=== PATIENT | female | born 1980 | race Two or more races ===

== ENCOUNTER 2019-01-03 14:19 | Emergency (ER) | payer OTHER ==
--- NOTE | 2019-01-03 14:30 | PDOC ---
Rapid Medical Evaluation Chief Complaint: Pain, Acute Time Seen by Provider: 01/03/19 14:28 Medical Evaluation: Allergies Allergy/AdvReac Type Severity Reaction Status Date / Time No Known Allergies Allergy Verified 12/31/17 17:43 01/03/19 14:28 I have performed a brief in-person evaluation of this patient. The patient presents with a chief complaint of: abd pain with no fevers, generalized- no other family ill, no N/V/D/C Pertinent physical exam findings: abd soft but tender I have ordered the following: UA/ UCG The patient will proceed to the ED for further evaluation. Discharge Disposition - Diagnosis Abdominal pain - Referrals - Patient Instructions - Post Discharge Activity
[2019-01-03 14:31] VITALS: BMI 27.0
[2019-01-03 15:30] LABS: PH,URINE 5.5 (5.0-8.0); URINE APPEARANCE CLEAR; URINE BILIRUBIN NEGATIVE (NEGATIVE); URINE COLOR YELLOW; URINE GLUCOSE (UA) NEGATIVE (NEGATIVE); URINE KETONE NEGATIVE (NEGATIVE); URINE LEUK ESTERASE NEGATIVE (NEGATIVE); URINE NITRITE NEGATIVE (NEGATIVE); URINE PROTEIN TRACE (NEGATIVE)
--- NOTE | 2019-01-03 16:10 | PDOC ---
History of Present Illness - General Chief Complaint: Pain, Acute Stated Complaint: ABD PAIN / VOMITING Time Seen by Provider: 01/03/19 14:28 History Source: Patient, Spouse (Marshallese-speaking ) Exam Limitations: No Limitations - History of Present Illness Initial Comments: 01/03/19 16:22 38F w/ pmh of depression, MVP, HTN, sickle cell presents with complaint of diffuse all-over abdominal pain w/a nausea and dizziness(room spinning) since last night. Has dry heaves. Denies emesis, anorexia. Last normal bowel movement was the morning prior to presentation. Last EGD was ~1.5ys prior with no notable results. Last painful sickle episode was in 2018. Does not have regular follow-up. Has irregular menses. LMP was ~12/07/18. Associated Symptoms: reports: nausea/vomiting. denies: chest pain, cough, diaphoresis, fever/chills, headaches, loss of appetite, shortness of breath, syncope Aspirin Received prior to arrival: No: no aspirin today Asa Contraindications(Core Measure): No: Allergy Past History - Travel Traveled outside of the country in the last 30 days: No Close contact w/someone who was outside of country & ill: No - Past Medical History Allergies/Adverse Reactions: Allergies Allergy/AdvReac Type Severity Reaction Status Date / Time No Known Allergies Allergy Verified 01/03/19 14:28 Home Medications: Ambulatory Orders Cetirizine HCl [Zyrtec Rapidly Dissolving Tab -] 10 mg PO DAILY #30 tab Fluticasone Propionate [Flonase Allergy Relief] 9.9 ml NS Q3H5XD #1 spray.susp 01/03/19 Meclizine HCl 25 mg PO Q6H PRN #28 tab.chew 01/03/19 Anemia: Yes (sickle cell disease) COPD: No - Surgical History Other Surgical History: 01/03/19 16:49 tubal ligation - Family Disease History Family Disease History: Other: Father (sickle cell) - Reproductive History LMP comment: 12/07/18 LMP Normal: No - Immunization History Immunization Up to Date: Yes - Suicide/Smoking/Psychosocial Hx Smoking History: Never smoked Have you smoked in the past 12 months: Yes Number of Cigarettes Smoked Daily: 5 Information on smoking cessation initiated: No 'Breaking Loose' booklet given: 08/14/18 Hx Alcohol Use: No Drug/Substance Use Hx: No Substance Use Type: None Hx Substance Use Treatment: No Review of Systems - Review of Systems Able to Perform ROS?: No Is the patient limited Marshallese proficient: Yes Constitutional: No: Chills, Fever, Loss of Appetite HEENTM: Yes: Double Vision. No: Blurred Vision Respiratory: No: Cough, Shortness of Breath, Wheezing Cardiac (ROS): No: Chest Pain, Palpitations ABD/GI: Yes: Nausea. No: Constipated, Diarrhea, Vomiting : No: Burning, Dysuria Integumentary: No: Dryness Neurological: Yes: Dizziness. No: Headache, Numbness Psychiatric: Yes: Depression *Physical Exam - Vital Signs Last Vital Signs Temp Pulse Resp BP Pulse Ox 98.5 F 65 16 139/90 100 01/03/19 14:28 01/03/19 14:28 01/03/19 14:28 01/03/19 14:28 01/03/19 14:28 - Physical Exam General Appearance: Yes: Mild Distress, Obese HEENT: positive: Pharynx Normal, Scleral Icterus (R), Scleral Icterus (L). negative: Normal Voice Neck: positive: Trachea midline. negative: Lymphadenopathy (R), Lymphadenopathy (L) Respiratory/Chest: positive: Lungs Clear, Normal Breath Sounds. negative: Respiratory Distress, Rales, Wheezing Cardiovascular: positive: Regular Rate, S1, S2 Gastrointestinal/Abdominal: positive: Soft, Tenderness (Tenderness of LUQ). negative: Guarding, Rebound Extremity: negative: Coldness, Swelling, Calf Tenderness Integumentary: positive: Dry, Warm Neurologic: positive: feature writer II-XII NML intact, Motor Strength 5/5, Other (normal Romberg's, norm pronator drift, norm [id number], norm heel-fay) ED Treatment Course - LABORATORY CBC & Chemistry Diagram: 01/03/19 17:49 01/03/19 17:49 - ADDITIONAL ORDERS Additional order review: Laboratory Results 01/03/19 01/03/19 14:51 14:51 Urine Color Yellow Urine Appearance Clear Urine pH 5.5 Ur Specific [place] 1.020 Urine Protein Trace Urine Glucose (UA) Negative Urine Ketones Negative Urine Blood Negative Urine Nitrite Negative Urine Bilirubin Negative Urine Urobilinogen 1.0 Ur Leukocyte Esterase Negative Urine HCG, Qual Negative Medical Decision Making - Medical Decision Making 01/03/19 17:01 - administered meclizine and zofran(SL) -- nausea improved - fu CBC, reticulocyte, CMP, lipase - fu CT head, CXR, EKG 01/03/19 18:22 - flonase for nasal congestion - will get CT A/P with PO and IV contrast 01/03/19 22:19 - positive Imogene Hallpike to Left - CT Head, CXR, EKG, CBC, CMP, UA -- neg - stable for discharge *DC/Admit/Observation/Transfer Diagnosis at time of Disposition: Nausea Abdominal pain Qualifiers: Abdominal location: generalized Qualified Code(s): R10.84 - Generalized abdominal pain - Discharge Dispostion Disposition: HOME Condition at time of disposition: Stable Decision to Admit order: No - Referrals Referrals: Tomasa Schreiber [Primary Care Provider] - Uli Cason MD [Staff Physician] - - Patient Instructions Printed Discharge Instructions: DI for Nausea -- Adult Additional Instructions: You were evaluated for generalized abdominal pain with nausea and dizziness. Shae Hallpike maneuver was positive of the Left side suggestive of otolith or vestibular disorders. Your symptoms improved after meclizine, zofran, IV fluids. Your CT head, CT abdodmen, CXR, EKG were negative for acute pathologies. Please take meclizine for your nausea as needed. Take zyrtec and flonase for nasal congestion. You can take acetaminophen for your abdominal pain. Please follow-up with your PCP for further evaluation of your abdominal pain. You were referred to ENT to evaluate for possible vestibular disorders. Please return to the ED if you experience: - severe, unremitting abdominal pain - severe, unremitting nausea and vomiting - Post Discharge Activity
[2019-01-03 16:14] LABS: EPI CELLS 7.9 /HPF (0-5/HPF); HYALINE CASTS 8 /lpf (0-8); URINE BACTERIA 42.3 /hpf (NEGATIVE); URINE RBC 2 /hpf (0-4); URINE WBC 1 /hpf (0-5)
[2019-01-03] MEDS ORDERED: ONDANSETRON *ODT* 4 MG TABLET SL ONE (16:37)
[2019-01-03] MEDS ORDERED: MECLIZINE HCL 25 MG TABLET (FP) PO ONE (16:37)
[2019-01-03] MEDS ORDERED: ONDANSETRON *ODT* 4 MG TABLET ONE (16:44)
[2019-01-03] MEDS ORDERED: MECLIZINE HCL 25 MG TABLET (FP) ONE (16:44)
[2019-01-03] MEDS ORDERED: SODIUM CHLORIDE 0.9% 1000 ML INFUS.BAG IV ONE (17:23)
[2019-01-03 18:02] LABS: HEMATOCRIT 30.9 % (32.4-45.2); HEMOGLOBIN 9.4 GM/dL (10.7-15.3); MCHC 30.5 g/dl (32.0-36.0); MEAN CELL VOLUME 65.3 fl (80-96); MEAN PLT VOLUME 9.9 fl (7.5-11.1); PLATELET COUNT 171 K/MM3 (134-434); RBC 4.74 M/mm3 (3.60-5.2); RDW 21.4 % (11.6-15.6); WHITE BLOOD COUNT 8.3 K/mm3 (4.0-10.0)
[2019-01-03 18:04] LABS: MCH 19.9 pg (25.7-33.7)
[2019-01-03 18:19] LABS: ALBUMIN 3.9 g/dl (3.4-5.0); ALK PHOS 102 U/L (45-117); ANION GAP 5 MMOL/L (8-16); BILIRUBIN,TOTAL 0.4 mg/dL (0.2-1); BLOOD UREA NITROGEN 8.2 mg/dL (7-18); CHLORIDE 107 mmol/L (98-107); CO2 26 mmol/L (21-32); CREATININE 0.6 mg/dL (0.55-1.3); GLUCOSE,RANDOM 111 mg/dL (74-106); LIPASE 65 U/L (73-393); POTASSIUM 4.2 mmol/L (3.5-5.1); SGOT/AST 10 U/L (15-37); SGPT/ALT 14 U/L (13-61); SODIUM 138 mmol/L (136-145); TOT PROT 7.8 g/dl (6.4-8.2)
[2019-01-03] MEDS ORDERED: FLUTICASONE PROP 0.05% 16 GM NASAL SPRAY NS ONE (18:20)
--- NOTE | 2019-01-03 19:31 | PDOC ---
Documentation entered by Marleni Cash SCRIBE, acting as scribe for Judi Pak MD. Judi Pak MD: This documentation has been prepared by the Shailesh neville Xhesika, SCRIBE, under my direction and personally reviewed by me in its entirety. I confirm that the documentation accurately reflects all work, treatment, procedures, and medical decision making performed by me. Attending Attestation - Resident Resident Name: Allen Hickey - ED Attending Attestation I have performed the following: I have examined & evaluated the patient, The case was reviewed & discussed with the resident, I agree w/resident's findings & plan, Exceptions are as noted - HPI HPI: 01/03/19 17:39 38 year old female with a significant PMH of depression, MVP, HTN, sickle cell (last episode in 2018) who presents to the emergency department for dizziness. Patient describes the dizziness as room spinning associated with diffuse abdominal pain and nausea since last night. Patient notes her last normal BM was yesterday morning. Patient notes her LMP was 12/07/18. 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 does not take any prophylactic medication for her sickle cell. vertigo is worse with turning. and rolling has had in the past. denies seasonal allergies but has had a frontal headahce. and congestion recently. has been told to use flonase in the past. no ear ringing. no cp no sob. no h/o acute chest. normal sickle pain crisis c/o joint pain and back pain not abd pain usually. The patient denies chest pain, shortness of breath, headache. Denies fever, chills, cough, vomiting, diarrhea and constipation. Denies dysuria, frequency, urgency and hematuria. Allergies: NKDA PCP: Tomasa Cuellar 01/03/19 19:17 - Physicial Exam PE: 01/03/19 19:19 awake alert lungs ctab. heart rrr no mrg abd soft luq epigastric ttp. rlq ttp. nd. ext wwp nt nd ext wwp . skin warm and dry no edema. nuero alert oriented x 3. finger to nose intact. heel to fay normal. neg romberg. alt hand movement normal. speech clear gait normal. 01/03/19 19:30 - Medical Decision Making 01/03/19 19:25 38 yo F with /ho sickle cell here with vertigo, abd pain nausea. ttp on abd exam nuerological/ cerebellar exam normal. positive marleny hallpike to right. likley peripheral. however due to risk factors cva sickle cell will ct head. fluids meclizine. h/o hysterectomy. will obtain ct a/p r/o obstruction. ua
[2019-01-03 21:11] LABS: RETICULOCYTES 1.96 % (0.5-1.5)
[2019-01-03 21:26] LABS: ANISOCYTOSIS 2+; MACROCYTOSIS 1+
[2019-01-03 21:27] LABS: PLATELET ESTIMATE ADEQUATE
[2019-01-03 22:46] VITALS: BP 111/63; PULSE 81; TEMP 98.7
--- NOTE | 2019-01-05 11:40 | EKG ---
Test Reason : Blood Pressure : / mmHG Vent. Rate : 060 BPM Atrial Rate : 060 BPM P-R Int : 168 ms QRS Dur : 070 ms QT Int : 468 ms P-R-T Axes : 046 036 036 degrees QTc Int : 468 ms NORMAL SINUS RHYTHM T WAVE ABNORMALITY, CONSIDER ANTERIOR ISCHEMIA PROLONGED QT ABNORMAL ECG WHEN COMPARED WITH ECG OF 31-DEC-2017 17:52, T WAVE INVERSION NOW EVIDENT IN ANTERIOR LEADS Confirmed by DAVID GALICIA, JOSIAH ([id number]) on 01/05/2019 11:39:34 AM Referred By: Confirmed By:JOSIAH HERNANDEZ MD
== END 2019-01-03 23:12 | disposition home or self-care (01) ==
LOC: JER 14:19
PROC: 3E0337Z Introduction of Electrolytic and Water Balance Substance into Peripheral Vein, Percutaneous Approach (ICD-10-PCS; principal; 2019-01-03)
DX: R10.84 Generalized abdominal pain (principal); R11.0 Nausea
CPT/HCPCS: 36415; 70450-TC; 71046-TC-FY; 74177-TC; 80053; 81003; 83690; 84484; 84703; 85025; 85044; 93005; 93010; 96360; 99283-25; J7030; Q0162; Q9967

== ENCOUNTER 2019-03-24 18:21 | Emergency (ER) | payer OTHER ==
[2019-03-24 18:38] VITALS: BP 104/66; TEMP 98.6; BMI 29.9
[2019-03-24 18:46] VITALS: PULSE 86
[2019-03-24] MEDS ORDERED: ACETAMINOPHEN 1000 MG/100 ML VIAL (NON FORMULARY) IVPB ONE (19:16)
--- NOTE | 2019-03-24 19:27 | PDOC ---
Attending Attestation - Resident Resident Name: Tex Lyn - ED Attending Attestation I have performed the following: I have examined & evaluated the patient, The case was reviewed & discussed with the resident, I agree w/resident's findings & plan - HPI HPI: 03/24/19 23:42 see resident hpi 03/24/19 23:42 - Physicial Exam PE: 03/24/19 23:42 see resident exam - Medical Decision Making 03/25/19 01:45 38-year-old female with multiple complaints including intermittent chest pain, mild headache and suprapubic pressure/dysuria CT scan of the brain, pelvic ultrasound and CT scan of the abdomen were performed which reveal possible bladder wall thickening and right ovarian cyst with no other significant acute findings Pelvic exam within normal limits Patient feeling better, asking for food Urine culture pending, will treat for clinical UTI with outpatient follow-up recommended
--- NOTE | 2019-03-24 19:49 | PDOC ---
History of Present Illness - General Chief Complaint: Pain, Acute Stated Complaint: ABDOMINAL PAIN Time Seen by Provider: 03/24/19 18:37 - History of Present Illness Initial Comments: 03/24/19 19:49 Pt is a 38 y/o F with a PMH of Depression, Paranoia, HTN, sickle cell trait who presents to [facility] due to Chest pain, headache, and lower abdominal pain. Pt endorses that she began to experience her symptoms this morning. Pt states chest pain is reproducible and radiates to her right arm. Pain is exacerbated when she inspires. Pt has not used any medications to relieve her symptoms. Pt states her abdominal pain has been constant and radiates to lower legs. Does endorse dysuria. Also states she is currently menstruating. Headache is described as achy and constant. Does endorse a history of headaches. Past History - Past Medical History Allergies/Adverse Reactions: Allergies Allergy/AdvReac Type Severity Reaction Status Date / Time No Known Allergies Allergy Verified 01/03/19 14:28 Home Medications: Ambulatory Orders Aripiprazole [Abilify] 10 mg PO DAILY 03/24/19 Fluoxetine HCl [Prozac -] 20 mg PO DAILY 03/24/19 Meclizine HCl 25 mg PO DAILY 03/24/19 traZODone HCL [Trazodone HCl] 50 mg PO HS 03/24/19 Cephalexin Monohydrate [Keflex -] 500 mg PO BID 7 Days #14 capsule 03/25/19 Anemia: Yes (sickle cell disease) COPD: No Psychiatric Problems: Yes (ANXIETY) Other medical history: VERTIGO - Surgical History GI Surgery: No - Immunization History Immunization Up to Date: Yes - Psycho Social/Smoking Cessation Hx Smoking History: Unknown if ever smoked Have you smoked in the past 12 months: No Number of Cigarettes Smoked Daily: 5 Information on smoking cessation initiated: No 'Breaking Loose' booklet given: 01/01/18 Hx Alcohol Use: No Drug/Substance Use Hx: No Substance Use Type: None Hx Substance Use Treatment: No Review of Systems - Review of Systems Constitutional: Yes: Chills Respiratory: No: Cough, Shortness of Breath Cardiac (ROS): Yes: Chest Pain ABD/GI: Yes: Abdominal cramping. No: Abdominal Distended, Constipated, Diarrhea , Rectal Bleeding, Vomiting : Yes: Dysuria Neurological: Yes: Headache *Physical Exam - Vital Signs Last Vital Signs Temp Pulse Resp BP Pulse Ox 98.6 F 86 16 104/66 98 03/24/19 18:36 03/24/19 18:44 03/24/19 18:36 03/24/19 18:36 03/24/19 18:44 - Physical Exam General Appearance: Yes: Nourished, Appropriately Dressed HEENT: positive: EOMI. negative: Pale Conjunctivae, Photophobia, Scleral Icterus (R), Scleral Icterus (L) Neck: positive: Supple Respiratory/Chest: positive: Lungs Clear, Normal Breath Sounds. negative: Respiratory Distress Female Pelvic Exam: positive: normal external exam (Exam Chaperoned by Lisa RAHMAN ), vaginal bleeding. negative: discharge, lesions Gastrointestinal/Abdominal: positive: Normal Bowel Sounds, Tender. negative: Distended, Guarding, Rebound Musculoskeletal: positive: Normal Inspection Extremity: positive: Normal Range of Motion. negative: Pedal Edema Integumentary: positive: Normal Color. negative: Erythema Neurologic: positive: articulation officer II-XII NML intact, Fully Oriented, Alert Heart Score/ECG Review - ECG Impressions Comment:: 03/24/19 19:53 EKG nl sinus rytham, nl intervals, no ST/T wave inversions. Venr rate 71 QTc 456 ED Treatment Course - LABORATORY CBC & Chemistry Diagram: 03/24/19 19:42 03/24/19 19:42 - Medications Given in the ED: ED Medications Discontinued Medications Generic Name Dose Route Start Last Admin Trade Name Luisq PRN Reason Stop Dose Admin Acetaminophen 1,000 mg 03/24/19 19:16 03/24/19 19:46 Ofirmev Injection - IVPB 03/24/19 19:17 1,000 mg ONCE ONE Administration Medical Decision Making - Medical Decision Making 03/24/19 19:49 CBC w/ diff, CMP, UC UA, Cardiac profile, IV Tylenol. 03/24/19 20:16 Will add on D-Dimer as PE on differential. Will perform Pelvic Exam ands Straight cath as well in light of abdominal pain and dysuria. Head CT w/o Contrast in light of sickle cell history. 03/24/19 21:07 Pelvic exam performed. Chaperoned by Lisa RAHMAN. No adnexal tenderness. Blood in vault however patient endorses having period currently. Pt straight cathed- endorses just voided. Minimal urine received. Will send for Urine Culture. Pt's serum preg negative, will send now for Head CT. 03/24/19 21:11 d-dimer negative. Will defer CTA Chest as Pulmonary Embolism very unlikely. 03/24/19 22:56 Pt straight cathed again as very little urine collected on 1st cath. Chaperoned by Emelia Harding RN. 03/24/19 23:18 Pt still endorsing lower abdominal pain. Will order CTAP w/ Contrast as well as TVUS to assess ovaries as ovarian torsion in differential . 03/24/19 23:31 Pt currently in Ultrasound 03/25/19 00:19 S[address] out Care to Dr Camargo Discharge - Discharge Information Problems reviewed: Yes Clinical Impression/Diagnosis: Cystitis Condition: Stable Disposition: HOME - Additional Discharge Information Prescriptions: Cephalexin Monohydrate [Keflex -] 500 mg PO BID 7 Days #14 capsule - Follow up/Referral Referrals: Tomasa Schreiber [Primary Care Provider] - - Patient Discharge Instructions Patient Printed Discharge Instructions: DI for Acute Cystitis Additional Instructions: You were seen in the ER for lower abdominal pain Your workup showed bladder infection You were given antibiotics You were prescribed antibiotics that should be taken as prescribed Please follow up with your Family Doctor within 1 week. Return to the ER if you have worsening symptoms, blood in the urine or fever. - Post Discharge Activity
[2019-03-24 20:08] LABS: BASO % 0.8 % (0-2.0); EOS % 2.7 % (0-4.5); HEMATOCRIT 32.2 % (32.4-45.2); HEMOGLOBIN 10.1 GM/dL (10.7-15.3); LYMPH % 32.2 % (8-40); MCH 22.3 pg (25.7-33.7); MCHC 31.4 g/dl (32.0-36.0); MEAN CELL VOLUME 71.2 fl (80-96); MEAN PLT VOLUME 11.1 fl (7.5-11.1); MONO % 5.5 % (3.8-10.2); NEUT % 58.8 % (42.8-82.8); RBC 4.53 M/mm3 (3.60-5.2); RDW 25.2 % (11.6-15.6); WHITE BLOOD COUNT 6.4 K/mm3 (4.0-10.0)
[2019-03-24] MEDS ORDERED: ACETAMINOPHEN INJECTION 100 ML IVPB ONE (20:13)
[2019-03-24 20:15] LABS: INR 1.11 (0.83-1.09); PROTHROMBIN TIME (PATIENT) 13.1 SEC (9.7-13.0)
[2019-03-24 20:23] LABS: ALBUMIN 3.4 g/dl (3.4-5.0); BILIRUBIN,TOTAL 0.3 mg/dL (0.2-1); CALCIUM 8.4 mg/dL (8.5-10.1); CREATININE 0.6 mg/dL (0.55-1.3); POTASSIUM 4.1 mmol/L (3.5-5.1); TOT PROT 6.6 g/dl (6.4-8.2)
[2019-03-24] MEDS ORDERED: SODIUM CHLORIDE 0.9% 1000 ML INFUS.BAG IV ONE (20:30)
[2019-03-24 21:55] LABS: PLATELET COUNT 141 K/MM3 (134-434)
[2019-03-24 21:56] LABS: ANISOCYTOSIS 3+; HOWELL-JOLLY BODIES 1+; PLATELET ESTIMATE ADEQUATE
[2019-03-24] MEDS ORDERED: SODIUM CHLORIDE 1,000 ML IV ONE (22:13)
[2019-03-24 23:13] LABS: EPI CELLS 3.4 /HPF (0-5/HPF); HYALINE CASTS 3 /lpf (0-8); PH,URINE 5.5 (5.0-8.0); URINE APPEARANCE CLEAR; URINE BACTERIA 1.2 /hpf (NEGATIVE); URINE BILIRUBIN NEGATIVE (NEGATIVE); URINE COLOR YELLOW; URINE GLUCOSE (UA) NEGATIVE (NEGATIVE); URINE KETONE NEGATIVE (NEGATIVE); URINE LEUK ESTERASE NEGATIVE (NEGATIVE); URINE NITRITE NEGATIVE (NEGATIVE); URINE PROTEIN NEGATIVE (NEGATIVE); URINE RBC 1 /hpf (0-4); URINE WBC 1 /hpf (0-5)
--- NOTE | 2019-03-25 01:28 | PDOC ---
*Physical Exam - Vital Signs Last Vital Signs Temp Pulse Resp BP Pulse Ox 98.6 F 86 16 104/66 98 03/24/19 18:36 03/24/19 18:44 03/24/19 18:36 03/24/19 18:36 03/24/19 18:44 - Physical Exam Comments: 03/25/19 01:25 Patient signed out by resident Dr. Lyn In short patient with PMH of Depression, Paranoia, HTN, sickle cell trait who presents to [facility] due to Chest pain, headache, and lower abdominal pain. Pending Head CT, TVUS, CTAP ED Course: CTAP: cystitis Head CT: unremarkable TVUS: unremarkable Patient dosed abx D/C with abx ED Treatment Course - LABORATORY CBC & Chemistry Diagram: 03/24/19 19:42 03/24/19 19:42 - ADDITIONAL ORDERS Additional order review: Laboratory Results 03/24/19 03/24/19 03/24/19 22:52 19:45 19:42 PT with INR INR D-Dimer 342 Sodium Potassium Chloride Carbon Dioxide Anion Gap BUN Creatinine Est GFR (CKD-EPI)AfAm Est GFR (CKD-EPI)NonAf Random Glucose Calcium Total Bilirubin AST ALT Alkaline Phosphatase Creatine Kinase Troponin I Total Protein Albumin Serum , Qual Negative Urine Color Yellow Urine Appearance Clear Urine pH 5.5 Ur Specific [place] 1.028 Urine Protein Negative Urine Glucose (UA) Negative Urine Ketones Negative Urine Blood 1+ H Urine Nitrite Negative Urine Bilirubin Negative Urine Urobilinogen 1.0 Ur Leukocyte Esterase Negative Urine WBC (Auto) 1 Urine RBC (Auto) 1 Urine Casts (Auto) 3 U Epithel Cells (Auto) 3.4 Urine Bacteria (Auto) 1.2 03/24/19 03/24/19 03/24/19 19:42 19:42 19:42 PT with INR 13.10 H INR 1.11 H D-Dimer Sodium 140 Potassium 4.1 Chloride 109 H Carbon Dioxide 28 Anion Gap 4 L BUN 13.0 Creatinine 0.6 Est GFR (CKD-EPI)AfAm 133.07 Est GFR (CKD-EPI)NonAf 114.82 Random Glucose 103 Calcium 8.4 L Total Bilirubin 0.3 AST 13 L ALT 15 Alkaline Phosphatase 96 Creatine Kinase 110 Troponin I < 0.02 Total Protein 6.6 Albumin 3.4 Serum , Qual Urine Color Urine Appearance Urine pH Ur Specific [place] Urine Protein Urine Glucose (UA) Urine Ketones Urine Blood Urine Nitrite Urine Bilirubin Urine Urobilinogen Ur Leukocyte Esterase Urine WBC (Auto) Urine RBC (Auto) Urine Casts (Auto) U Epithel Cells (Auto) Urine Bacteria (Auto) 03/24/19 19:42 RBC 4.53 MCV 71.2 L MCHC 31.4 L RDW 25.2 H MPV 11.1 D Neutrophils % 58.8 D Lymphocytes % 32.2 D Monocytes % 5.5 Eosinophils % 2.7 Basophils % 0.8 - Medications Given in the ED: ED Medications Discontinued Medications Generic Name Dose Route Start Last Admin Trade Name Luisq PRN Reason Stop Dose Admin Acetaminophen 1,000 mg 03/24/19 19:16 03/24/19 19:46 Ofirmev Injection - IVPB 03/24/19 19:17 1,000 mg ONCE ONE Administration Sodium Chloride 1,000 mls @ 1,000 mls/hr 03/24/19 22:13 03/24/19 22:27 Normal Saline - IV 03/24/19 23:12 1,000 mls/hr ONCE ONE Administration Sodium Chloride 1,000 ml 03/24/19 20:30 03/24/19 21:13 Normal Saline - IV 03/24/19 20:31 1,000 ml NOW ONE Administration Discharge - Discharge Information Problems reviewed: Yes Clinical Impression/Diagnosis: Cystitis Condition: Stable Disposition: HOME - Admission No - Additional Discharge Information Prescriptions: Cephalexin Monohydrate [Keflex -] 500 mg PO BID 7 Days #14 capsule - Follow up/Referral Referrals: Tomasa Schreiber [Primary Care Provider] - - Patient Discharge Instructions Patient Printed Discharge Instructions: DI for Acute Cystitis Additional Instructions: You were seen in the ER for lower abdominal pain Your workup showed bladder infection You were given antibiotics You were prescribed antibiotics that should be taken as prescribed Please follow up with your Family Doctor within 1 week. Return to the ER if you have worsening symptoms, blood in the urine or fever. - Post Discharge Activity
[2019-03-25] MEDS ORDERED: CEPHALEXIN MONOHYDRATE 500 MG CAPSULE (UD) PO ONE (01:29)
[2019-03-25] MEDS ORDERED: CEPHALEXIN MONOHYDRATE 500 MG CAPSULE (UD) ONE (01:55)
--- NOTE | 2019-03-25 09:18 | EKG ---
Test Reason : Blood Pressure : / mmHG Vent. Rate : 071 BPM Atrial Rate : 071 BPM P-R Int : 162 ms QRS Dur : 070 ms QT Int : 420 ms P-R-T Axes : 036 039 046 degrees QTc Int : 456 ms NORMAL SINUS RHYTHM NORMAL ECG WHEN COMPARED WITH ECG OF 03-JAN-2019 17:49, NO SIGNIFICANT CHANGE WAS FOUND Confirmed by MD Cox Edward ([id number]) on 03/25/2019 9:17:45 AM Referred By: Confirmed By:Pan Cox MD
== END 2019-03-25 02:02 | disposition home or self-care (01) ==
LOC: JER 18:21
PROC: 3E0337Z Introduction of Electrolytic and Water Balance Substance into Peripheral Vein, Percutaneous Approach (ICD-10-PCS; principal; 2019-03-24)
PROC: 3E033NZ Introduction of Analgesics, Hypnotics, Sedatives into Peripheral Vein, Percutaneous Approach (ICD-10-PCS; 2019-03-24)
DX: N30.00 Acute cystitis without hematuria (principal); I10 Essential (primary) hypertension; F32.9 Major depressive disorder, single episode, unspecified; F22 Delusional disorders; D57.1 Sickle-cell disease without crisis
CPT/HCPCS: 36415; 70450-TC; 74177-TC; 76830-TC; 76856-TC; 80053; 81003; 82550; 84484; 84703; 85025; 85379; 85610; 87086; 93005; 93010; 96361; 96374; 99285-25; J0131; J7030

== ENCOUNTER 2020-02-07 23:08 | Inpatient (IN) | payer OTHER ==
--- OUTSIDE RECORDS SUMMARY | 2020-02-07 23:55 | XMS ---
:1980 Demographics Address [address] [place] [address] Phone Email Address Preferred Language spa Marital Status or Adventist Affiliation [place] Race [facility] Ethnic Group or Author Organization [facility] Support Name Relationship Address Phone UNEMPLOYD Unavailable Unavailable Unavailable BELEN HUTCHISON [address] [place] [address] UE Unavailable Unavailable Unavailable LUKE TSE PARTNER [address] [phone] [place] [address] LUKE TSE Unavailable [address] [place] [address] Care Team Providers Name Role Phone [facility], AW9 Unavailable Unavailable DELLA VÁSQUEZ Unavailable Unavailable VINCE TOURE Unavailable Unavailable GORDO ROWAN Unavailable Unavailable Kaitlin Duke MD Unavailable Unavailable Sharifa Shay Unavailable Unavailabl e EMERGENCY SERVICE, X Unavailable Unavailable Mikala, Eliseo Unavailable Unavailable Mikala, Eliseo Unavailable Unavailable Mikala, Eliseo Unavailable Unavailable Mikala, Eliseo Unavailable Unavailable Mikala, Eliseo Unavailable Unavailable SIVA RILEY, [id number] Unavailable Unavailabl e Leny Caldera Unavailable Unavailable EVANS PIERSON Unavailable Unavailable Adrián Serrano MD Unavailable Unavailable Re-disclosure Warning The records that you are about to access may contain information from federally- assisted alcohol or drug abuse programs. If such information is present, then the following federally mandated warning applies: This information has been disclosed to you from records protected by federal confidentiality rules (42 CFR part 2). The federal rules prohibit you from making any further disclosure of this information unless further disclosure is expressly permitted by the written consent of the person to whom it pertains or as otherwise permitted by 42 CFR part 2. A general authorization for the release of medical or other information is NOT sufficient for this purpose. The Federal rules restrict any use of the information to criminally investigate or prosecute any alcohol or drug abuse patient.The records that you are about to access may contain highly sensitive health information, the redisclosure of which is protected by Article 27-F of the [facility] Public Health law. If you continue you may haveaccess to information: Regarding HIV / AIDS; Provided by facilities licensed or operated by the [facility] Office of Mental Health; or Provided by the [facility] Office for People With Developmental Disabilities. If such information is present, then the following [facility] mandated warning applies: This information has been disclosed to you from confidential records which are protected by state law. State law prohibits you from making any further disclosure of this information without the specific written consent of the person to whom it pertains, or as otherwise permitted by law. Any unauthorized further disclosure in violation of state law may result in a fine or intermediate sentence or both. A general authorization for the release of medical or other information is NOT sufficient authorization for further disclosure. Advance Directives Directive Description Beverage Sales Consultant Admission Nurse Coordinator Status Observation Data S ource(s) Description Advance No completed [facility] Advance No completed [facility] Allergies and Adverse Reactions Type Description Substance Reaction Status Data Source(s ) Drug allergy No Known Allergies No Known NO KNOWN [place] Allergies [facility] Food allergy No Known Food No Known Food [place] Allergies Allergies [facility] on Drug allergy No Known Allergies No Known [place] Allergies [facility] on Drug allergy No Known Drug No Known Drug [place] Allergies Allergies [facility] on Encounters Encounter Providers Location Date Indications Data Source(s ) Outpatient Attender: FAHAD [facility]: [facility] Health Car e DELLA VÁSQUEZ [facility] Outpatient Attender: MHAW9 12/20/2019 G[facility] ([facility] 11:21:10 AM Care Lakeshia puente EDT Patient admitted. Outpatient Attender: FAHAD 12/19/2019 06:00:00 AM [facility] MARCO ANTONIOdmitter: MARKO VÁSQUEZ [facility] DELLA Outpatient Attender: ANUM 10/30/2019 06:00:00 AM [facility] GORDO RiveroAdmitter: EDT Health C are GORDO Benavidez Outpatient Attender: ANUM, 09/29/2019 06:00:00 AM [facility] GORDO RiveroAdmitter: [facility] Health C are GORDO Benavidez Outpatient Attender: ANUM, 09/01/2019 06:00:00 AM [facility] GORDO RiveroAdmitter: [facility] Health C are GORDO Benavidez Outpatient Attender: ANUM, 08/08/2019 03:23:00 PM [facility] GORDO RiveroAdmitter: [facility] Health C are GORDO Benavidez Outpatient Attender: MHAW9 [facility] 07/08/2019 11:49:28 AM I ([facility]) Patient admitted. U Attender: Sharifa Hernandez4 06/17/2019 04:00:00 PM CARELOGIC ([facility] - 06/17/2019 Services of 04:45:00 PM [facility]) Patient admitted. Outpatient Attender: 06/02/2019 [facility] GORDO Booth 06:00:00 AM EST [facility] Care B.Admitter: GORDO Benavidez Emergency Attender: Leny 05/21/2019 TROUBLE BREATHIN Ann MCQUEEN 09:08:00 PM EST - AUTO Hospita l 05/21/2019 10:09:00 PM EST TROUBLE BREATHING AUTO Patient discharged. Emergency Attender: MONSERRAT 04/02/2019 LOW PEVIC [facility] VINCEAttender: 02:04:00 PM EST [facility] EMERGENCY SERVICE, Corpor ation XAdmitter: VINCE TOURE LOW PEVIC PAIN Outpatient Attender: ANUM 04/02/2019 06:00:00 AM [facility] GORDO RiveroAdmitter: EST Health C are GORDO Benavidez Outpatient Attender: ANUM, 03/26/2019 06:00:00 AM [facility] GORDO RiveroAdmitter: EST Health C are GORDO Benavidez Outpatient Attender: ANUM 03/21/2019 06:00:00 AM [facility] GORDO RiveroAdmitter: EDT [facility] are GORDO Benavidez Outpatient Attender: MHAW9 [facility] 03/18/2019 02:05:19 PM I ([facility] EDT [facility]) Patient admitted. Outpatient Attender: 03/13/2019 [facility] GORDO Booth 06:00:00 AM EDT a [facility] Care B.Admitter: GORDO Benavidez Emergency Attender: Adrián 02/27/2019 VERTIGO [place] [facility] Maggie GALICIA 06:25:00 PM EDT - [facility]PRESS Hospit al 02/27/2019 09:10:00 PM EDT VERTIGO EMPRESS Patient discharged. Outpatient Attender: ANUM 02/13/2019 [facility] GORDO RiveroAttender: 06:00:00 AM EDT a [facility] Care FAHAD Suzette MARCO ANTONIOdmitter: DELLA VÁSQUEZ Emergency Attender: Kaitlin 02/10/2019 CHEST Juanjo Duke MD 01:55:00 AM EDT - PAIN,DIFF Hospita l 02/10/2019 BREATH 02:36:00 AM EDT WALK CHEST PAIN,DIFF BREATH WALK Patient discharged. Emergency Attender: DANGELO 01/29/2019 05:49:00 [facility] PAIN Outpatient Attender: ANUM 01/29/2019 06:00:00 AM [facility] GORDO RiveroAdmitter: [facility] are GORDO ROWAN Corpo ration Outpatient Attender: [id number] 01/10/2019 06:00:00 AM [facility].Admitter: [id number] [facility] SIVA RILEY Outpatient Attender: ANUM 12/18/2018 06:00:00 AM [facility] GORDO RiveroAdmitter: [facility] are GORDO ROWAN Corpo ration Outpatient Attender: ANUM 12/06/2018 06:00:00 AM [facility] GORDO RiveroAdmitter: [facility] GORDO ROWAN Corpo ration Outpatient Attender: Eliseo 11/06/2018 06:00:00 [facility] Ca re GORDO ROWANAdmitter: Eliseo Tavarez Attender: Sharifa Bean 02/01/2018 12:00:00 PM CARELOGIC (Family Shay EDT - 04/25/2019 Services of 03:36:00 PM EST [facility] er) Patient discharged. Immunizations Vaccine Date Status Description Data Source(s) New in 2011. IIV4 05/31/2015 completed influenza, injectable, [place] 03:57:00 PM EST quadrivalent, preserv Hos pital free New in 2011. IIV4 05/31/2015 completed influenza, injectable, [place] 03:57:00 PM EST quadrivalent, preserv Hos pital free New in 2011. IIV4 05/31/2015 completed influenza, injectable, [place] 03:57:00 PM EST quadrivalent, preserv Hos pital free Medications Medication Brand Start Product Dose Route Administrative Pharmacy [facility] Indications Reaction Description Data Name Date Form Instructions Instructions Source(s) Doxycycline Doxycy UNK active Doxycy dukes [place] 100mg (P dukes 2019 mg (Peds) Oral r C ounty 100mg 09:35: 100 mg PO Health (P 15 PM Care EST Corporatio n Medication administered onsite Rocephin Rocephin 04/02/2019 250 UNK active Js ephin [place] (Ceftriaxon (Ceftriaxon 09:35:13 PM mg (Ceftriaxone) [facility] EST Inj 250 mgIM [place] [facility] Care [facility] Medication administered onsite Doxycycline 04/02/2019 999 MG UNK completed Doxycycline [place] Hyclate 100 09:26:04 PM Hyclat e 100 County MG Ora EST MG Oral Health Car e Capsule TAKE Corpora tion 1 CAPSULE TWICE DAILY. Dispense: 28 Supervising physician: Vince Toure MD Tylenol Tylenol 04/02/2019 1000 UNK active Tylen ol [place] Infusion (AD Infusion 02:34:14 PM mg I nfusion County (AD EST (ADULT) or Health Ca re GT 50 kg Corporation 1000 mg IVPB Medication administered onsite Gastroview Gastroview 04/02/2019 1000 UNK active Gastroview [place] PO Contra PO Contra 02:34:14 PM mL PO Contrast [facility] (Adult) Health Care 1000 mL PO Corporati on Medication administered onsite 0.9% 0.9% 04/02/2019 1000 mL UNK active 0.9% NaC l [place] NaCl IV NaCl IV 02:34:14 PM IV 1000 mL; [facility] IV rate: Care Bolus over Corporati on 30 minutes Medication administered onsite Ondansetron 4 Ondansetron 05/18/2017 TABLET 4 mg ORAL completed White MG Hcl 05:45:00 PM [place] Disintegrating EST Hospi shawna Oral Tablet Ondansetron Hcl Ondansetron 4 Ondansetron 05/18/2017 TABLET 4 mg ORAL active [place] MG Hcl 05:45:00 PM [place] Disintegrating EST Hospi shawna Oral Tablet Ondansetron Hcl Ondansetron 4 dansetron 05/18/2017 TABLET 4 mg ORAL completed [place] MG Hcl 05:45:00 PM [place] Disintegrating EST Hospi shawna Oral Tablet Ondansetron Hcl Acetaminophen Oxycodone/Ac 04/27/2017 TABLET 1 ORAL active [place] 325 MG / etaminophen 09:06:00 PM [facility] Hydrochloride 5 MG Oral Tablet [Percocet] Oxycodone/Aceta minophen Acetaminophen Oxycodone/Ac 04/27/2017 TABLET 1 ORAL completed [place] 325 MG / etaminophen 09:06:00 PM [facility] Hydrochloride 5 MG Oral Tablet [Percocet] Oxycodone/Aceta minophen Acetaminophen Oxycodone/Ac 04/27/2017 TABLET 1 ORAL completed [place] 325 MG / etaminophen 09:06:00 PM [facility] Oxycodone [facility] Hydrochloride 5 MG Oral Tablet [Percocet] Oxycodone/Aceta minophen Cephalexin 500 Cephalexin 10/07/2016 CAPSULE 1000 ORAL completed White MG Oral Capsule Monohydrate 06:51:00 AM mg [place] Cephalexin [facility] Monohydrate Cephalexin 500 Cephalexin 10/07/2016 CAPSULE 1000 ORAL completed White MG Oral Capsule Monohydrate 06:51:00 AM mg [place] Cephalexin [facility] Monohydrate Cephalexin 500 Cephalexin 10/07/2016 CAPSULE 1000 ORAL completed White MG Oral Capsule Monohydrate 06:51:00 AM mg [place] Cephalexin EDT [facility] Monohydrate Percocet 03/05/2012 999 UNK completed [place] 5/325mg-12 04:31:57 PM MG [facility] et Corporatio 5m n g (O xy co do ne 5m g/ Ac et am in op he n 32 5m g) ; Tw el ve (1 2) ; Ta ke on e ev er y fo ur to si x ho ur s as ne ed ed fo r pa in ; ma x 6 ta bs /d ay ; CA UT IO N: Ca us es se da ti on Augmentin Oral 03/05/2012 999 UNK completed A [place] 04:31:57 PM [facility] nt Care in Corporatio Or n al 8 75 m g( s) 1 ta b( s) BI D - Du ra ti on : X7 da y( s) - Di sp en se : q ua nt it y hayes ff ic ie nt Augmentin Oral 11/18/2011 999 UNK completed [place] 01:23:36 AM MG Au [facility] EDT Health en Care ti Corporatio n n Or al 8 75 m g( s) BI D - Du ra ti on : X5 da y( s) - Di sp en se : q ua nt it y hayes ff ic ie nt Percocet 11/18/2011 999 UNK completed [place] 5/325mg-12 01:23:36 AM MG [facility] et Corporatio 5m n g (O xy co do ne 5m g/ Ac et am in op he n 32 5m g) ; Tw el ve (1 2) ; Ta ke on e ev er y fo ur to si x ho ur s as ne ed ed fo r pa in ; ma x 6 ta bs /d ay ; CA UT IO N: Ca us es se da ti on quetiapine 25 Quetiapine TABLET 25 mg ORAL completed [place] MG Oral Tablet Fumarate [place] [Seroquel] [facility] Quetiapine Fumarate quetiapine 25 Seroquel 999 oral discontinued Se [place] MG Oral Tablet MG ro r Cou nty [Seroquel] [facility] el Care Corporatio n aripiprazole 2 Abilify 999 oral completed Ab [place] MG Oral Tablet MG il r Cou nty [Abilify] if Health y Care Corporatio n Melatonin 0.2 melatonin 999 oral completed m e [place] MG Oral Tablet MG la r Cou nty melatonin to Health ni Care n Corporatio n Sertraline 25 sertraline 999 oral discontinued se [place] MG Oral Tablet MG rt r Cou nty [Zoloft] Health sertraline li Care ne Corporatio n Sertraline 50 Sertraline TABLET 1 ORAL completed [place] MG Oral Tablet Hcl {[facility] Pla ns [Zoloft] [facility]} [facility] Sertraline Hcl Ranitidine Hcl TABLET 150 ORAL completed [place] mg [facility] Sertraline 50 Sertraline TABLET 1 ORAL active [place] MG Oral Tablet Hcl {[facility] [Zoloft] e} [facility] Sertraline Hcl quetiapine 100 Quetiapine TABLET 150 ORAL active [place] MG Oral Tablet Fumarate mg P lai [Seroatrium health] [facility] Quetiapine Fumarate quetiapine 100 Quetiapine TABLET 100 ORAL completed [place] MG Oral Tablet Fumarate mg [facility] [[facility]] [facility] Quetiapine Fumarate ferrous sulfate Ferrous TABLET 325 ORAL completed [place] 325 MG Delayed Sulfate mg Pl ains Release Oral Hospita l Tablet Ferrous Sulfate None UNSPECIFI 1 completed [place] ED {[facility] } [facility] quetiapine 100 Quetiapine TABLET 100 ORAL completed [place] MG Oral Tablet Fumarate mg [facility] Quetiapine Fumarate None UNSPECIFI 1 completed [place] ED {[facility] } [facility] Zolpidem TABLET 10 mg ORAL active [place] Tartrate [facility] Zolpidem Ambien 999 oral discontinued Am W [place] tartrate 5 MG MG bi r Coun ty Oral Tablet en Health [Ambien] Care Corporatio n quetiapine 25 Quetiapine TABLET 25 mg ORAL completed [place] MG Oral Tablet Fumarate [facility] Quetiapine Fumarate quetiapine 100 Quetiapine TABLET 100 ORAL completed [place] MG Oral Tablet Fumarate mg [facility] Quetiapine Fumarate None UNSPECIFI 1 completed White ED {[facility] } [facility] quetiapine 100 Quetiapine TABLET 150 ORAL completed [place] MG Oral Tablet Fumarate mg [facility] [[facility]] [facility] Quetiapine Fumarate quetiapine 100 Quetiapine TABLET 150 ORAL completed [place] MG Oral Tablet Fumarate mg P [facility] [Seroque] [facility] Quetiapine Fumarate ferrous sulfate Ferrous TABLET 325 ORAL completed [place] 325 MG Delayed Sulfate mg Pl ains Release Oral Hospita l Tablet Ferrous Sulfate Zolpidem TABLET 10 mg ORAL completed [facility] Fluoxetine 4 Prozac 999 oral completed Pr [place] MG/ML Oral MG oz r County Solution Prozac [facility] Care Corporatio n Zolpidem TABLET 10 mg ORAL completed [facility] ferrous sulfate Ferrous TABLET 325 ORAL completed [place] 325 MG Delayed Sulfate mg Pl ains Release Oral Hospita l Tablet Ferrous Sulfate Sertraline 50 Sertraline TABLET 1 ORAL completed [place] MG Oral Tablet Hcl {[facility] [Zoloft] ule} Hospital Sertraline Hcl quetiapine 25 Quetiapine TABLET 25 mg ORAL completed [place] MG Oral Tablet Fumarate [facility] [Seroque] [facility] Quetiapine Fumarate Ranitidine Hcl TABLET 150 ORAL completed White [facility] Ranitidine Hcl TABLET 150 ORAL completed [place] mg [facility] Insurance Providers Payer name Policy Policy ID Covered Covered Policy Plan type / alliance party ID alliance party's [employer] n Coverage relationship type to portillo [facility] MEDICAID HMO [id number] SP [id number] [facility] Health Self [place] Medicaid Self [facility] [id number] PT [id number] [facility] PL[facility] [id number] PT [id number] SELF PAY INSURANCE PT [facility] [id number] PT [id number] COMM PLAN Problems, Conditions, and Diagnoses Code Display Name Description Problem Type Effective Data Sour ce(s) Dates R50.81 Fever presenting FEVER PRESENTING Diagnosis 12/19/2019 [place] with conditions WITH CONDITIONS 06:00:00 AM [facility] [place] classified CLASSIFIED EDT Care elsewhere ELSEWHERE [facility] D57.3 Sickle-cell trait SICKLE-CELL TRAIT Diagnosis 12/19/2019 [place] 06:00:00 AM [facility] EDT Care Corporation F33.3 Major depressive MAJOR DEPRESSV Diagnosis 12/19/2019 [place] dez disorder, DISORDER, 06:00:00 AM [facility] recurrent, severe RECURRENT, SEVERE EDT Care with psychotic W PSYCH SYMPTOMS Chela oration symptoms G47.00 Insomnia, INSOMNIA, Diagnosis 10/30/2019 [place] unspecified UNSPECIFIED 06:00:00 AM Count includes the [facility] EDT Care Corporation F41.1 Generalized GENERALIZED Diagnosis 08/08/2019 [place] anxiety disorder ANXIETY DISORDER 03:23:00 PM fflap EDT Care Corporation F41.1 Generalized Generalized Diagnosis 06/17/2019 [place] anxiety disorder anxiety disorder 04:00:00 PM ( Family EST Services [facility]) F43.20 Adjustment Adjustment Diagnosis 06/17/2019 [place] disorder, disorder, 04:00:00 PM (Family unspecified unspecified EST Services [facility]) R06.02 Shortness of R06.02 Diagnosis 05/21/2019 [place] breath 09:42:00 PM Hospital EST D57.3 Sickle-cell trait D57.3 Diagnosis 05/21/2019 [place] 09:42:00 PM Hospital EST D64.9 Anemia, D64.9 Diagnosis 05/21/2019 [place] unspecified 09:42:00 PM Hospital EST J06.9 Acute upper J06.9 Diagnosis 05/21/2019 [place] respiratory 09:42:00 PM Hospital infection, EST unspecified Z32.02 Encounter for ENCOUNTER FOR Diagnosis 04/02/2019 [facility] test, TEST, 02:04:00 PM [facility] result negative RESULT NEGATIVE EST Care Corporation F32.9 Major depressive MAJOR DEPRESSIVE Diagnosis 04/02/2019 [facility] disorder, single DISORDER, SINGLE 02:04:00 PM fflap episode, EPISODE, EST Care unspecified UNSPECIFIED Corporation F41.9 Anxiety disorder, ANXIETY DISORDER, Diagnosis 04/02/2019 [place] unspecified UNSPECIFIED 02:04:00 PM Count includes the [facility] EST Care Corporation R16.1 Splenomegaly, not SPLENOMEGALY, NOT Diagnosis 04/02/2019 [place] elsewhere ELSEWHERE 02:04:00 PM [facility] classified CLASSIFIED EST Care Corporation R16.0 Hepatomegaly, not HEPATOMEGALY, NOT Diagnosis 04/02/2019 [place] elsewhere ELSEWHERE 02:04:00 PM [facility] classified CLASSIFIED EST Care Corporation N13.2 Hydronephrosis HYDRONEPHROSIS Diagnosis 04/02/2019 [facility] with renal and WITH RENAL AND 02:04:00 PM Count y Health ureteral calculous URETERAL CALCULOUS EST Care obstruction OBSTRUCTION Corporation J90 Pleural effusion, PLEURAL EFFUSION, Diagnosis 04/02/2019 [place] not elsewhere NOT ELSEWHERE 02:04:00 PM [facility] classified CLASSIFIED EST Care Corporation R10.31 Right lower RIGHT LOWER Diagnosis 04/02/2019 [place] quadrant pain QUADRANT PAIN 02:04:00 PM [facility] EST Care Corporation R10.2 Pelvic and PELVIC AND Diagnosis 04/02/2019 [place] perineal pain PERINEAL PAIN 02:04:00 PM [facility] EST Care Corporation R11.0 Nausea R11.0 Diagnosis 02/27/2019 [place] 06:52:00 PM Hospital EDT R51 Headache R51 Diagnosis 02/27/2019 [place] 06:52:00 PM Hospital EDT R42 Dizziness and R42 Diagnosis 02/27/2019 [place] giddiness 06:52:00 PM Hospital EDT Z53.21 Procedure and Z53.21 Diagnosis 02/10/2019 [place] treatment not 02:27:00 AM Hospital carried out due to EDT patient leaving prior to being seen by health care provider Z98.890 Other specified OTHER SPECIFIED Diagnosis 01/29/2019 [place] postprocedural POSTPROCEDURAL 05:49:00 PM Count y Health states STATES EDT Care Corporation R06.02 Shortness of SHORTNESS OF Diagnosis 01/29/2019 [facility] r breath BREATH 05:49:00 PM [facility] EDT Care Corporation D53.9 Nutritional NUTRITIONAL Diagnosis 01/29/2019 [place] anemia, ANEMIA, 05:49:00 PM [facility] unspecified UNSPECIFIED EDT Care Corporation R51 Headache HEADACHE Diagnosis 01/29/2019 [place] 05:49:00 PM [facility] EDT Care Corporation V72.42 TEST Diagnosis 07/23/2018 [place] ( [place] EXAMINATION OR POSITIVE 05:43:38 PM [place] TEST POSITIVE EST [facility]) Surgeries/Procedures Procedure Description Date Indications Data Source(s) Diagnostic radiography of 05/21/2019 [place] chest, combined 12:00:00 AM Hospital posteroanterior and lateral EST (procedure) Electrocardiographic procedure 05/21/2019 [place] (procedure) 12:00:00 AM Hospital EST Electrocardiographic procedure 02/10/2019 [place] (procedure) 12:00:00 AM Hospital EDT Emergency dept visit 02/10/2019 Juanjo mathews 12:00:00 AM Hospital EDT Diagnostic radiography of 02/10/2019 [place] chest, combined 12:00:00 AM Hospital posteroanterior and lateral EDT (procedure) Electrocardiographic procedure 02/10/2019 [place] (procedure) 12:00:00 AM Hospital EDT Results ID Date Data Source [id number] 02/27/2019 06:37:00 PM EDT [facility] Hospice Registered Nurse:SALLY LOU Name Value Range Interpretation Description Data Sup porting Code Source(s) Document(s ) Glucose 102 mg/dL [place] [Mass/volume] [facility] in Capillary blood by Glucometer Procedure Social History Code Duration Value Status Description Data Source(s ) Smoking 05/21/2019 Never smoked completed Never smoked [facility] 09:34:00 PM EST tobacco tobacco (finding) Ho spital (finding) Smoking Unknown if ever completed Unknown if ever [place] smoked smoked Hospital Smoking Unknown if ever completed Unknown if ever [place] smoked smoked Hospital Vital Signs ID Date Data Source UNK Name Value Range Interpretation Code Description Data Source(s) Diastolic blood 68 mm[Hg] 68 mm[Hg] [facility] Systolic blood 114 mm[Hg] 114 mm[Hg] [facility] Respiratory rate 18 /min 18 /min [facility] Heart rate 97 /min 97 /min [facility] Body temperature 36.79485 36.61696 [facility] Body temperature 98.3 [degF] 98.3 [degF] [facility] Body mass index 30.0 kg/m2 30.0 kg/m2 [facility] ins (BMI) [Ratio] Hospital Body weight 192 [lb_av] 192 [lb_av] [facility] Diastolic blood 71 mm[Hg] 71 mm[Hg] [facility] Systolic blood 110 mm[Hg] 110 mm[Hg] [facility] Respiratory rate 18 /min 18 /min [facility] Heart rate 79 /min 79 /min [facility] Body temperature 36.16801 36.34931 [facility] Body temperature 98.0 [degF] 98.0 [degF] [facility] Body mass index 30.0 kg/m2 30.0 kg/m2 [facility] ins (BMI) [Ratio] Hospital Body weight 180.38 180.38 [lb_av] [facility] [lb_av[facility] Diastolic blood 79 mm[Hg] 79 mm[Hg] [facility] Systolic blood 138 mm[Hg] 138 mm[Hg] [facility] Respiratory rate 18 /min 18 /min [facility] 92 /min 92 /min [facility] Body temperature 37.82131 37.37676 [facility] Body temperature 98.8 [degF] 98.8 [degF] [facility] Patient Treatment Plan of Care Planned Activity Planned Date Details Description Data Source (s) Doxycycline 100mg (P 04/02/2019 09:35:15 [facility] Rocephin (Ceftriaxon 04/02/2019 09:35:13 [facility] Tylenol Infusion (AD 04/02/2019 02:34:14 [facility] 0.9% NaCl IV 04/02/2019 02:34:14 [facility] Gastroview PO Contra 04/02/2019 02:34:14 [facility]
--- NOTE | 2020-02-07 23:58 | PDOC ---
History of Present Illness - General Chief Complaint: Cold Symptoms Stated Complaint: FEVER/POSSIBLE COVID Time Seen by Provider: 02/07/20 23:58 - History of Present Illness Initial Comments: 39 YOF h/o htn, depression, presents w/ abdominal pain and nausea since 3pm today. Patient reports that pain came on suddenly, is located in RLQ, 10/10 in intensity, stabbing in quality, nothing makes better or worse, radiates around her flank to her back. She reports that yesterday her urine had a reddish tint but is unsure if this was just vaginal spotting mixed in to her urine. LMP was jan 27. Has a h/o kidney stones but prior episodes did not feel similar. Patient reports that she has been 6 times and has had many C sections. Denies CP, SOB, vomiting, fever, chills, diarrhea, blood in stool, recent sick contacts or recent travel. Constitutional: No Weight Change, No Fever, No Chills, No Night Sweats, No Fatigue, No Malaise ENT/Mouth: No Hearing Changes, No Ear Pain, No Nasal Congestion, No Sinus Pain, No Hoarseness, No sore throat, No Rhinorrhea, No Swallowing Difficulty Eyes: No Eye Pain, No Swelling, No Redness, No Foreign Body, No Discharge, No Vision Changes Cardiovascular: No Chest Pain, No SOB, No PND, No Dyspnea on Exertion, No Orthopnea, No Claudication, No Edema, No Palpitations Respiratory: No Cough, No Sputum, No Wheezing, No Smoke Exposure, No Dyspnea Gastrointestinal: + Nausea, No Vomiting, No Diarrhea, No Constipation, + Pain, No Heartburn, No Anorexia, No Dysphagia, No Hematochezia, No Melena, No Flatulence, No Jaundice Genitourinary: No Dysmenorrhea, No DUB, No Dyspareunia, No Dysuria, No Urinary Frequency, + Hematuria, No Urinary Incontinence, No Urgency, No Flank Pain, No Urinary Flow Changes, No Hesitancy Musculoskeletal: No Arthralgias, No Myalgias, No Joint Swelling, No Joint Stiffness, No Back Pain, No Neck Pain, No Injury History Skin: No Skin Lesions, No Pruritis, No Hair Changes, No Breast/Skin Changes, No Nipple Discharge Neuro: No Weakness, No Numbness, No Paresthesias, No Loss of Consciousness, No Syncope, No Dizziness, No Headache, No Coordination Changes, No Recent Falls Psych: No Anxiety/Panic, No Depression, No Insomnia, No Personality Changes, No Delusions, No Rumination, No SI/HI/AH/VH, No Social Issues, No Memory Changes, No Violence/Abuse Hx., No Eating Concerns Heme/Lymph: No Bruising, No Bleeding, No Transfusions History, No Lymphad enopathy Endocrine: No Polyuria, No Polydipsia, No Temperature Intolerance Past History - Medical History Allergies/Adverse Reactions: Allergies Allergy/AdvReac Type Severity Reaction Status Date / Time No Known Allergies Allergy Verified 02/07/20 23:12 Home Medications: Ambulatory Orders Aripiprazole [Abilify] 10 mg PO DAILY 03/24/19 Fluoxetine HCl [Prozac -] 20 mg PO DAILY 03/24/19 Meclizine HCl 25 mg PO DAILY 03/24/19 traZODone HCL [Trazodone HCl] 50 mg PO HS 03/24/19 Cephalexin Monohydrate [Keflex -] 500 mg PO BID 7 Days #14 capsule 03/25/19 Anemia: Yes (sickle cell disease) COPD: No Psychiatric Problems: Yes (ANXIETY) - Surgical History GI Surgery: No - Reproductive History Is Patient Now?: No - Immunization History Immunization Up to Date: Yes - Psycho-Social/Smoking History Smoking History: Unknown if ever smoked Have you smoked in the past 12 months: No Number of Cigarettes Smoked Daily: 5 Information on smoking cessation initiated: No 'Breaking Loose' booklet given: 01/01/18 - Substance Abuse Hx (Audit-C & DAST Scrn) How often the patient has a drink containing alcohol: Never Score: In Men: 4 or > Positive; In Women: 3 or > Positive: 0 Screen Result (Pos requires Nsg. Audit-10AR): Negative In the last yr the pt used illegal drug/Rx for NonMed reason: No Score: Yes response is considered Positive: 0 Screen Result (Positive result requires Nsg. DAST-10): Negative *Physical Exam - Vital Signs Last Vital Signs Temp Pulse Resp BP Pulse Ox 102.0 F H 69 22 H 120/84 99 02/07/20 23:13 02/07/20 23:13 02/07/20 23:13 02/07/20 23:13 09/19/20 23:13 - Physical Exam General Appearance: Yes: Nourished, Appropriately Dressed, Apparent Distress HEENT: positive: EOMI, GERTRUDE, Normal ENT Inspection, Normal Voice Neck: positive: Trachea midline, Normal Thyroid Respiratory/Chest: positive: Lungs Clear, Normal Breath Sounds Cardiovascular: positive: Regular Rhythm, Regular Rate, S1, S2 Gastrointestinal/Abdominal: positive: Tender, Soft, Tenderness, Other (positive rosvings) Musculoskeletal: positive: CVA Tenderness Extremity: positive: Normal Inspection, Normal Range of Motion Integumentary: positive: Normal Color, Dry, Warm 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, Fully Oriented, Alert, Normal Mood/Affect, Normal Response, Motor Strength 09/22 ED Treatment Course - LABORATORY CBC & Chemistry Diagram: 02/08/20 00:37 02/08/20 00:37 Medical Decision Making - Medical Decision Making 39 YOF h/o sickle cell trait, mvp, and hypertension presents for abdominal pain and fever - patient reports sudden onset abdominal pain - septic: temp 102, rr 22 - will do sepsis w/u - CXR reveals right lower lobe pneumonia, CT reveals non obstructing stone in right kidney, labs show anemia w/ Hgb in 8s - will admit patient for pneumonia and sepsis 02/08/20 06:33 02/08/20 06:35 Discharge - Discharge Information Problems reviewed: Yes Clinical Impression/Diagnosis: Pneumonia - Follow up/Referral - Patient Discharge Instructions - Post Discharge Activity
[2020-02-08] MEDS ORDERED: morphine SULFATE 4 MG/ML VIAL IVPUSH ONE (00:14)
[2020-02-08] MEDS ORDERED: SODIUM CHLORIDE 2,722 ML IV ONE (00:17)
[2020-02-08] MEDS ORDERED: ACETAMINOPHEN 1000 MG/100 ML VIAL (NON FORMULARY) IVPB ONE (00:18)
[2020-02-08] MEDS ORDERED: ACETAMINOPHEN INJECTION 100 ML IVPB ONE (01:15)
[2020-02-08] MEDS ORDERED: morphine SULFATE 4 MG/ML VIAL ONE (01:15)
[2020-02-08 01:23] LABS: BASO % 0.2 % (0-2.0); EOS % 0.6 % (0-4.5); HEMATOCRIT 26.9 % (32.4-45.2); HEMOGLOBIN 8.4 GM/dL (10.7-15.3); LYMPH % 7.6 % (8-40); MCHC 31.1 g/dl (32.0-36.0); MEAN CELL VOLUME 67.5 fl (80-96); MEAN PLT VOLUME 9.9 fl (7.5-11.1); MONO % 5.4 % (3.8-10.2); NEUT % 86.2 % (42.8-82.8); PLATELET COUNT 104 K/MM3 (134-434); RBC 3.98 M/mm3 (3.60-5.2); RDW 19.5 % (11.6-15.6); WHITE BLOOD COUNT 11.7 K/mm3 (4.0-10.0)
[2020-02-08 01:36] LABS: INR 1.22 (0.83-1.09); PROTHROMBIN TIME (PATIENT) 14.4 SEC (9.7-13.0)
[2020-02-08 01:46] LABS: ALBUMIN 3.2 g/dl (3.4-5.0); ANION GAP 6 MMOL/L (8-16); BLOOD UREA NITROGEN 9.3 mg/dL (7-18); CALCIUM 8.1 mg/dL (8.5-10.1); CHLORIDE 106 mmol/L (98-107); CO2 26 mmol/L (21-32); CREATININE 0.9 mg/dL (0.55-1.3); GLUCOSE,RANDOM 101 mg/dL (74-106); LIPASE 64 U/L (73-393); POTASSIUM 3.7 mmol/L (3.5-5.1); SGOT/AST 10 U/L (15-37); SGPT/ALT 19 U/L (13-61); SODIUM 138 mmol/L (136-145)
[2020-02-08 01:51] LABS: ALK PHOS 123 U/L (45-117); BILIRUBIN,TOTAL 0.7 mg/dL (0.2-1); TOT PROT 6.8 g/dl (6.4-8.2)
[2020-02-08 02:12] LABS: PH,URINE 6.5 (5.0-8.0); URINE APPEARANCE CLEAR; URINE BILIRUBIN NEGATIVE (NEGATIVE); URINE COLOR YELLOW; URINE GLUCOSE (UA) NEGATIVE (NEGATIVE); URINE KETONE NEGATIVE (NEGATIVE); URINE LEUK ESTERASE NEGATIVE (NEGATIVE); URINE NITRITE NEGATIVE (NEGATIVE); URINE PROTEIN NEGATIVE (NEGATIVE); URINE UROBILINOGEN 0.2 mg/dL (0.2-1.0)
--- NOTE | 2020-02-08 02:43 | PDOC ---
Documentation entered by Ashley Thomson SCRIBE, acting as scribe for Sondra Brandt MD. Sondra Brandt MD: This documentation has been prepared by the karenibe, Ashley Thosmon SCRIBE, under my direction and personally reviewed by me in its entirety. I confirm that the documentation accurately reflects all work, treatment, procedures, and medical decision making performed by me. Attending Attestation - Resident Resident Name: Usman Boggs - ED Attending Attestation I have performed the following: I have examined & evaluated the patient, The case was reviewed & discussed with the resident, I agree w/resident's findings & plan - HPI HPI: 02/08/20 00:25 The patient is a 39-year-old female with a past medical history significant for HTN, depression, MVP, and sickle cell who presents to the emergency department w ith a sudden onset of right-sided flank pain radiating down to the groin since 3:00 pm today. - Physicial Exam PE: 02/08/20 03:55 Pt has normal HEENT pt has normal heart and lungs no flank pain abd diffuse pain pt cant find a position of comfort. - Medical Decision Making 02/08/20 03:08 Pt has a 102F and she has anemia due to her sickle cell trait. Due to COVID pt has been putting off her appt with her PMD who gives her transfusions. 02/08/20 03:55 Patient Name: TESFAYE CHEATHAM THIS IS A PRELIMINARY REPORT DATE OF SERVICE: 2020-02-08 03:17:00 IMAGES: 525 EXAM: CT abdomen without contrast and CT pelvis without contrast HISTORY: 39-year-old female assess for nephrolithiasis COMPARISON: None. FINDINGS: Mild basilar atelectasis and pneumonia. Right kidney upper pole 1 mm nonobstructing nephrolithiasis. No hydronephrosis or hydroureter. No stones in the ureters or bladder. Lack of intravenous contrast limits this exam. Noncontrast evaluation liver gallbladder pancreas spleen and adrenal glands appear unremarkable. Lack of oral contrast limits this exam. Noncontrast evaluation stomach small bowel and appendix appear unremarkable. No appendicitis. Diverticulosis. No diverticulitis. Anterior lower uterine segment myometrial scarring. Mild thickening of the fundal endometrium. Uterus otherwise appears unremarkable. Bladder appears unremarkable. Anterior midline pelvic subcutaneous scarring. Chronic bilateral L5 pars interarticularis fractures with nonunion. Mild to moderate degenerative disc disease in the lower lumbar spine. Small umbilical hernia omental fat without incarceration. Subcutaneous adipose tissue is incompletely included within the [id number]. IMPRESSION: Mild basilar atelectasis and pneumonia. Right kidney upper pole 1 mm nonobstructing nephrolithiasis. Diverticulosis. Anterior lower uterine segment myometrial scarring. Mild thickening of the fundal endometrium. If clinically indicated follow-up outpatient evaluation may be needed. Chronic bilateral L5 pars interarticularis fractures with nonunion. Small umbilical hernia omental fat without incarceration. 02/08/20 03:56 Pt feeling better with tylenol and IV hydration and morphine.; her O2sat is 94% on RA Pt will be admitted for sickle cell trait and anemia and bilateral basal pneumonia. Pt likely passed a kidney stone, as she was writhing in pain and she had hematuria. Now with no blood in urine and no infection Pt has no flank pain and she has only a stone in the upper right pole of the kidney Heart Score/ECG Review - ECG Intrepretation Rhythm: Regular Rhythm - [place]: Normal - P and DC Prominent R with upright T in V1 (true posterior IN): No Delta Wave(s) Present: No WPW: No - QRS Poor R Wave Progression: No Q Wave Present: No - ST and T Early Repolarization: No Non Specific ST-T Wave changes: No - ECG Impressions Normal ECG: Yes Non-specific ST Elevation: No Ischemic Changes: No Tachycardia: Sinus Torsades rosalina Pointes: No WPW: No Discharge - Discharge Information Problems reviewed: Yes Clinical Impression/Diagnosis: Pneumonia - Follow up/Referral - Patient Discharge Instructions - Post Discharge Activity
[2020-02-08 02:44] LABS: ANISOCYTOSIS 1+
[2020-02-08] MEDS ORDERED: AZITHROMYCIN IVPB 500 MG in DEXTROSE 5%-WATER - 250 ML IVPB ONE (03:55)
--- NOTE | 2020-02-08 04:32 | PN ---
Teaching Attending Note Name of Resident: Juan Jordan ATTENDING PHYSICIAN STATEMENT I saw and evaluated the patient. I reviewed the resident's note and discussed the case with the resident. I agree with the resident's findings and plan as documented. SUBJECTIVE: Patient is a 39 year old woman with a PMH of Kidney stones, Paranoia, Sickle ce ll ?disease, MVP, Anxiety, HTN and Depression who presents to the ER with abdominal pain and nausea since 3pm today. Patient reports that pain came on suddenly, is located in RLQ, 10/10 in intensity, stabbing in quality, nothing makes it better or worse and it radiates around her flank to her back. She reports that yesterday her urine had a reddish tint but is unsure if this was just vaginal spotting mixed in to her urine. Her LMP was Jan 28, 2020. Patient reports that she has been 6 times and has had many C-sections. Patient denies chest pain, shortness of breath, headache, palpitations, dizziness, fever, chills, vomiting, diarrhea, constipation, dysuria, frequency, urgency, melena, hematochezia or hematuria. Denies alcohol, tobacco or illicit drug use. No sick contacts or recent travels. Family history of SD in father. OBJECTIVE: Alert Vital Signs Period Temp Pulse Resp BP Sys/Nichols Pulse Ox Last 24 Hr 98.3 F-102.0 F 69-90 18-22 112-120/70-84 96-99 HEENT: No Jaundice, eye redness or discharge, PERRLA, EOMI. Normocephalic, atraumatic. External ears are normal and hearing is grossly intact. No nasal discharge. Neck: Supple, nontender. No palpable adenopathy or thyromegaly. No JVD Chest: Good effort. Clear to auscultation and percussion. Heart: Regular. No S3, rub or murmur Abdomen: Not distended, soft, diffuse upper abdominal tenderness and no HSM. No rebound or guarding. Normal bowel sounds. Ext: Peripheral pulses intact. No leg edema. Skin: Warm and dry. No petechiae, rash or ecchymosis. Neuro: Alert. Oriented x3. CN 2-12 grossly intact. Sensation grossly intact in all four extremities and DTR are symmetric. Psych: Appropriate mood and affect. Good insight. Home Medications Medication Instructions Recorded Aripiprazole [Abilify] 10 mg PO DAILY 03/24/19 Fluoxetine HCl [Prozac -] 20 mg PO DAILY 03/24/19 Meclizine HCl 25 mg PO DAILY 03/24/19 traZODone HCL [Trazodone HCl] 50 mg PO HS 03/24/19 Cephalexin Monohydrate [Keflex -] 500 mg PO BID 7 Days #14 capsule 03/25/19 Abnormal Lab Results 02/08/20 02/08/20 02/08/20 00:37 00:37 00:37 WBC 11.7 H Hgb 8.4 L Hct 26.9 L D MCV 67.5 L MCH 21.0 L MCHC 31.1 L RDW 19.5 H Plt Count 104 L D Absolute Neuts (auto) 10.1 H Neutrophils % 86.2 H D Lymphocytes % 7.6 L D PT with INR 14.40 H INR 1.22 H D-Dimer Anion Gap 6 L Calcium 8.1 L AST 10 L Alkaline Phosphatase 123 H Albumin 3.2 L Lipase 64 L 02/08/20 03:56 WBC Hgb Hct MCV MCH MCHC RDW Plt Count Absolute Neuts (auto) Neutrophils % Lymphocytes % PT with INR INR D-Dimer 513 H Anion Gap Calcium AST Alkaline Phosphatase Albumin Lipase ASSESSMENT AND PLAN: 1. Sepsis due to pneumonia/Rule out COVID-19 infection - CXR shows cardiomegaly with RLL infiltrate. Oxygen saturation was 94% on room air. CT abdomen/pelvis without contrast report - "Mild basilar atelectasis and pneumonia. Right kidney upper pole 1 mm nonobstructing nephrolithiasis. No hydronephrosis or hydroureter. No stones in the ureters or bladder. Lack of intravenous contrast limits this exam. Noncontrast evaluation liver gallbladder pancreas spleen and adrenal glands appear unremarkable. Lack of oral contrast li mits this exam. Noncontrast evaluation stomach small bowel and appendix appear unremarkable. No appendicitis. Diverticulosis. No diverticulitis. Anterior lower uterine segment myometrial scarring. Mild thickening of the fundal endometrium. Uterus otherwise appears unremarkable. Bladder appears unremarkable. Anterior midline pelvic subcutaneous scarring. Chronic bilateral L5 pars interarticularis fractures with nonunion. Mild to moderate degenerative disc disease in the lower lumbar spine. Small umbilical hernia omental fat without incarceration. Subcutaneous adipose tissue is incompletely included within the [id number]. IMPRESSION: Mild basilar atelectasis and pneumonia. Right kidney upper pole 1 mm nonobstructing nephrolithiasis. Diverticulosis. Anterior lower uterine segment myometrial scarring. Mild thickening of the fundal endometrium. If clinically indicated follow-up outpatient evaluation may be needed. Chronic bilateral L5 pars interarticularis fractures with nonunion. Small umbilical hernia omental fat without incarceration." EKG shows sinus tachycardia at 105/minute and QTc 367, nonspecific T wave changes with no significant acute ischemic ST changes. Not significantly changed compared to prior EKG. Initial troponin is negative. Viral testing for COVID-19 ordered and patient placed on airborne, droplet and contact isolation. Started on supplemental oxygen via nasal cannula. ER staff prescribed Tylenol, IV Ceftriaxone, IV Azithromycin, IV Morphine and IV NS for the patient. Will monitor platelets, continue antibiotics, and consult ID/Pulmonary. Refer to Nephrology for outpatient stone disease risk factor evaluation. Will continue comprehensive care for all of patients comorbid conditions. 2. Hypoalbuminemia - Possibly due to combined effects of malnutrition and inflammation associated with comorbid conditions. Will ensure adequate dietary protein intake and also consult lobster catcher. 3. Anemia with low MCV Will confirm sickle cell status. Do basic anemia work up including serial stool guaiacs, reticulocyte count and iron studies. 4. Obesity Counseled on the risks associated with obesity. Will provide bandar ent all the necessary assistance, counseling and positive reinforcement to facilitate weight loss. Consult lobster catcher. 5. DVT prophylaxis - Lovenox 40 mg SQ q 24 hours. 6. Advance directives - Full code.
[2020-02-08] MEDS ORDERED: AZITHROMYCIN IVPB 500 MG/250 ML BAG IVPB ONE ×2 (05:52→09:52)
[2020-02-08] MEDS ORDERED: CEFTRIAXONE 1 GM/50 ML BAG ONE (05:52)
--- OUTSIDE RECORDS SUMMARY | 2020-02-08 06:20 | XMS ---
:1980 Author Organization [facility] Support Name Relationship Address Phone UE, UNEMPLOYED Unavailable Unavailable Unavailable UNEMPLOYD Unavailable Unavailable Unavailable BELEN HUTCHISON [address] [place] [address] UE Unavailable Unavailable Unavailable LUKE TSE PARTNER [address] [place] [address] LUKE TSE Unavailable [address] [phone] [place] [address] Care Team Providers Name Role Phone [facility], [id number] Unavailable Unavailable DELLA VÁSQUEZ Unavailable Unavailable VINCE TOURE Unavailable Unavailable GORDO ROWAN Unavailable Unavailable Kaitlin Duke MD Unavailable Unavailable Sharifa Shay Unavailable Unavailabl e EMERGENCY SERVICE, X Unavailable Unavailable Mikala, Eliseo Unavailable Unavailable Mikala, Eliseo Unavailable Unavailable Mikala, Eliseo Unavailable Unavailable Mikala, Eliseo Unavailable Unavailable Mikala, Eliseo Unavailable Unavailable SIVA RILEY, [id number] Unavailable Unavailabl Leny Alejo Unavailable Unavailable EVANS PIERSON Unavailable Unavailable Adrián [...] is protected by Article 27-F of the [facility] Public Health law. If you continue you may haveaccess to information: Regarding HIV / AIDS; Provided by facilities licensed or operated by the [facility] Office of Mental Health; or Provided by the [facility] Office for People With Developmental Disabilities. If such information is present, then the following [facility] mandated warning applies: This information has been [...] law may result in a fine or residential sentence or both. A general authorization for the release of medical or other information is NOT sufficient authorization for further disclosure. Advance Directives Directive Description Vice President Of Procurement Manager Qa Status Observation Data S ource(s) Description Advance No completed [facility] Advance No completed [facility] Allergies and Adverse Reactions Type Description Substance Reaction Status Data Source(s ) Drug allergy No Known Allergies No Known NO KNOWN [facility] [place] [facility] Food allergy No Known Food No Known Food [facility] [facility] Allergies Allergies [facility] Drug allergy No Known Allergies No Known [place] [facility] Allergies [facility] Drug allergy No Known Drug No Known Drug [facility] [facility] Allergies Allergies [facility] Encounters Encounter Providers Location Date Indications Data Source(s ) Outpatient Attender: FAHAD [facility] Car e DELLA VÁSQUEZ [facility] Outpatient Attender: MHAW9 12/20/2019 GSI ([facility] 11:21:10 AM Care Lakeshia aguilar) EDT Patient admitted. Outpatient Attender: FAHAD 12/19/2019 06:00:00 AM [facility] MARCO ANTONIOdmitter: MARKO VÁSQUEZ [facility] Watsi DELLA Outpatient Attender: ANUM 10/30/2019 06:00:00 AM [facility] GORDO RiveroAdmitter: EDT Health C are GORDO Benavidez Outpatient Attender: ANUM, 09/29/2019 06:00:00 AM [facility] GORDO RiveroAdmitter: [facility] Health C are GORDO Benavidez Outpatient Attender: ANUM, 09/01/2019 06:00:00 AM [facility] GORDO RiveroAdmitter: [facility] Health C are GORDO Benavidez Outpatient Attender: ANUM, 08/08/2019 03:23:00 PM [facility] GORDO RiveroAdmitter: [facility] Health C are GORDO Benavidez Outpatient Attender: MHAW9 [facility] 07/08/2019 11:49:28 AM I ([facility]) Patient admitted. U Attender: Sharifa Hernandez4 06/17/2019 04:00:00 PM CARELOGIC ([facility] - 06/17/2019 Services of 04:45:[address] [facility]) Patient admitted. Outpatient Attender: 06/02/2019 [facility] GORDO Booth 06:00:00 AM EST [facility] Care B.Admitter: GORDO Benavidez Emergency Attender: Leny 05/21/2019 TROUBLE BREATHIN Ann MCQUEEN 09:08:00 PM EST - AUTO Hospita l 05/21/2019 10:09:00 PM EST TROUBLE BREATHING AUTO Patient discharged. Emergency Attender: MONSERRAT 04/02/2019 LOW PEVIC [facility] CAROLAttender: 02:04:00 PM EST [facility] EM[facility]GENCY SERVICE, Corpor ation XAdmitter: VINCE TOURE PEVIC PAIN Outpatient Attender: ANUM 04/02/2019 06:00:00 AM [facility] GORDO RiveroAdmitter: [facility] Health C are GORDO Benavidez Outpatient Attender: ANUM, 03/26/2019 06:00:00 AM [facility] GORDO RiveroAdmitter: EST Health C are GORDO Benavidez Outpatient Attender: ANUM 03/21/2019 06:00:00 AM [facility] GORDO RiveroAdmitter: EDT [facility] are GORDO Benavidez Outpatient Attender: MHAW9 [facility] 03/18/2019 02:05:19 PM I ([facility] EDT [facility]) Patient admitted. Outpatient Attender: 03/13/2019 [facility] GORDO Booth 06:00:00 AM EDT [facility] Care B.Admitter: GORDO Benavidez Emergency Attender: Adrián 02/27/2019 VERTIGO [facility] Ashley Serrano MD 06:25:00 PM EDT - [facility] Hospit al 02/27/2019 09:10:00 PM EDT VERTIGO EMPRESS Patient discharged. Outpatient Attender: ANUM 02/13/2019 [facility] GORDO RiveroAttender: 06:00:00 AM EDT [facility] Care Suzette VÁSQUEZdmitter: DELLA VÁSQUEZ Emergency Attender: Kaitlin 02/10/2019 CHEST Juanjo Duke MD 01:55:00 AM EDT - PAIN,DIFF Hospita l 02/10/2019 BREATH 02:36:00 AM EDT WALK CHEST PAIN,DIFF BREATH WALK Patient discharged. Emergency Attender: DANGELO, 01/29/2019 05:49:00 [facility] PAIN Outpatient Attender: ANUM 01/29/2019 06:00:00 AM [facility] GORDO RiveroAdmitter: [facility] are GORDO ROWAN Corpo ration Outpatient Attender: [id number] 01/10/2019 06:00:00 AM [facility] OBDULIO RILEY; [facility] Care .Admitter: [id number] [facility] SIVA RILEY Outpatient Attender: ANUM 12/18/2018 06:00:00 AM [facility] GORDO RiveroAdmitter: [facility] are GORDO ROWAN [employer] ration Outpatient Attender: ANUM 12/06/2018 06:00:00 AM [facility] GORDO RiveroAdmitter: [facility] are SCHULTHEIS, GORDO B. Corpo ration Outpatient Attender: Eliseo 11/06/2018 06:00:[facility] GORDO [place] Corporat ion Terri.Admitter: Eliseo Tavarez Attender: Sharifa Bean 02/01/2018 12:00:00 PM CARELOGIC (Family Shay EDT - 04/25/2019 Services of 03:36:00 PM EST [facility]) Patient discharged. Immunizations Vaccine Date Status Description Data Source(s) New in 2011. IIV4 05/31/2015 completed influenza, injectable, [facility] 03:57:00 PM EST quadrivalent, preserv Hos pital free New in 2011. IIV4 05/31/2015 completed influenza, injectable, [facility] 03:57:00 PM EST quadrivalent, preserv Hos pital free New in 2011. IIV4 05/31/2015 completed influenza, injectable, [facility] 03:57:00 PM EST quadrivalent, preserv Hos pital free Medications Medication Brand Start Product Dose Route Administrative Pharmacy [facility] Indications Reaction Description Data Name Date Form Instructions Instructions Source(s) Doxycycline Doxycy UNK active Doxycy dukes [place] 100mg (P dukes 2019 mg (Peds) Oral r C ounty 100mg 09:35: 100 mg PO Health (P 15 PM Care EST Corporatio n Medication administered onsite Rocephin Rocephin 04/02/2019 250 UNK active Js ephin [place] (Ceftriaxon (Ceftriaxon 09:35:13 PM mg (Ceftriaxone) [facility] EST Inj 250 mgIM [employer] Care [employer] Medication administered onsite Doxycycline 04/02/2019 999 MG UNK completed Doxycycline [place] Hyclate 100 09:26:04 PM Hyclat e 100 County MG Ora EST MG Oral Health Car e Capsule TAKE Corpora tion 1 CAPSULE TWICE DAILY. Dispense: 28 Supervising physician: Vince Toure MD Tylenol Tylenol 04/02/2019 1000 UNK active Tylen ol [place] Infusion (AD Infusion 02:34:14 PM mg I nfusion County (AD EST (ADULT) or Health Ca re GT 50 kg Corporation 1000 mg IVPB Medication administered onsite Gastroview Gastroview 04/02/2019 1000 UNK active Gastroview [place] PO Contra PO Contra 02:34:14 PM mL PO Contrast [facility] (Adult) Health Care 1000 mL PO Corporati on Medication administered onsite 0.9% 0.9% 04/02/2019 1000 mL UNK active 0.9% NaC l Viola NaCl IV NaCl IV 02:34:14 PM IV 1000 mL; [facility] IV rate: Care Bolus over Corporati on 30 minutes Medication administered onsite Ondansetron 4 Ondansetron 05/18/2017 TABLET 4 mg ORAL completed White MG Hcl 05:45:00 PM [place] [facility] EST Hospi shawna Oral Tablet Ondansetron Hcl Ondansetron 4 Ondansetron 05/18/2017 TABLET 4 mg ORAL active White MG Hcl 05:45:00 PM [place] [facility] EST Hospi shawna Oral Tablet Ondansetron Hcl Ondansetron 4 dansetron 05/18/2017 TABLET 4 mg ORAL completed White MG Hcl 05:45:00 PM [place] [facility] EST Hospi shawna Oral Tablet Ondansetron Hcl Acetaminophen Oxycodone/Ac 04/27/2017 TABLET 1 ORAL active White 325 MG / etaminophen 09:06:00 PM [facility] Hydrochloride 5 MG Oral Tablet [Percocet] Oxycodone/Aceta minophen Acetaminophen Oxycodone/Ac 04/27/2017 TABLET 1 ORAL completed White 325 MG / etaminophen 09:06:00 [facility] Hydro[facility] 5 MG Oral Tablet [Percocet] Oxycodone/Aceta minophen Acetaminophen Oxycodone/Ac 04/27/2017 TABLET 1 ORAL completed White 325 MG / etaminophen 09:06:00 PM [facility] Oxycodone [facility] Hydrochloride 5 MG Oral Tablet [Percocet] Oxycodone/Aceta minophen Cephalexin 500 Cephalexin 10/07/2016 CAPSULE 1000 ORAL completed White MG Oral Capsule Monohydrate 06:51:00 AM mg [place] Cephalexin [facility] Monohydrate Cephalexin 500 Cephalexin 10/07/2016 CAPSULE 1000 ORAL completed White MG Oral Capsule Monohydrate 06:51:00 AM mg [place] Cephalexin [facility] Monohydrate Cephalexin 500 Cephalexin 10/07/2016 CAPSULE 1000 ORAL completed White MG Oral Capsule Monohydrate 06:51:00 AM mg [place] Cephalexin EDT [facility] Monohydrate Percocet 03/05/2012 999 UNK completed [place] 5/325mg-12 04:31:57 PM MG Pe [facility] EDT [facility] oc Care et Corporatio 5m n g [...] UNK completed A [place] 04:31:57 PM MG ug [facility] EDT [facility] nt Care in Corporatio Or n al 8 75 m g( s) 1 ta b( s) BI D - Du ra ti on : X7 da y( s) - Di sp en se : q ua nt it y hayes ff ic ie nt Augmentin Oral 11/18/2011 999 UNK completed [place] 01:23:36 AM MG Au [facility] EDT Health en Care ti Corporatio n n Or al 8 75 m g( s) BI D - Du ra ti on : X5 da y( s) - Di sp en se : q ua nt it y hayes ff ic ie nt Percocet 11/18/2011 999 UNK completed [place] 5/325mg-12 01:23:36 AM MG Pe [facility] EDT [facility] oc Care et Corporatio 5m n g [...] MG Oral Tablet Fumarate P lains [Seroquel] [facility] Quetiapine Fumarate quetiapine 25 Seroquel 999 oral discontinued Se [place] MG Oral Tablet MG ro r Cou nty [Seroquel] Health el Care Corporatio n aripiprazole 2 Abilify [...] Plai ns [Zoloft] ule} Hospital Sertraline Hcl Ranitidine Hcl TABLET 150 ORAL completed White mg [facility] Sertraline 50 Sertraline TABLET 1 ORAL active White MG Oral Tablet Hcl {Caps Plai ns [Zoloft] ule} [facility] Sertraline Hcl quetiapine 100 Quetiapine TABLET 150 ORAL active White MG Oral Tablet Fumarate mg P [facility]] [facility] Quetiapine Fumarate quetiapine 100 Quetiapine TABLET 100 ORAL completed White MG Oral Tablet Fumarate mg P [facility] [[facility]] [facility] Quetiapine Fumarate ferrous sulfate Ferrous TABLET 325 ORAL completed White 325 MG Delayed Sulfate mg Pl ains Release Oral Hospita l Tablet Ferrous Sulfate None UNSPECIFI 1 completed White ED {[facility] } [facility] quetiapine 100 Quetiapine TABLET 100 ORAL completed White MG Oral Tablet Fumarate mg P [facility] Quetiapine Fumarate None UNSPECIFI 1 completed [place] ED {[facility] } [facility] Zolpidem TABLET 10 mg ORAL active White Tartrate [facility] Zolpidem Ambien 999 oral discontinued Am W [place] tartrate 5 MG MG bi r Coun ty Oral Tablet en Health [Ambien] Care Corporatio n quetiapine 25 Quetiapine TABLET 25 mg ORAL completed White MG Oral Tablet Fumarate P [facility]] [facility] Quetiapine Fumarate quetiapine 100 Quetiapine TABLET 100 ORAL completed White MG Oral Tablet Fumarate mg P [facility]] [facility] Quetiapine Fumarate None UNSPECIFI 1 completed White ED {[facility] } [facility] quetiapine 100 Quetiapine TABLET 150 ORAL completed White MG Oral Tablet Fumarate mg P [facility] [[facility]] [facility] Quetiapine Fumarate quetiapine 100 Quetiapine TABLET 150 ORAL completed White MG Oral Tablet Fumarate mg P [facility] [[facility] Quetiapine Fumarate ferrous sulfate Ferrous TABLET 325 ORAL completed White 325 MG Delayed Sulfate mg Pl ains Release Oral Hospita l Tablet Ferrous Sulfate Zolpidem TABLET 10 mg ORAL completed [facility] Fluoxetine 4 Prozac 999 oral completed Pr [place] MG/ML Oral MG oz r County Solution Prozac [facility] Care Corporatio n Zolpidem TABLET 10 mg ORAL completed i te [facility] ferrous sulfate Ferrous TABLET 325 ORAL completed White 325 MG Delayed Sulfate mg Pl ains Release Oral Hospita l Tablet Ferrous Sulfate Sertraline 50 Sertraline TABLET 1 ORAL completed White MG Oral Tablet Hcl {Caps Plai ns [Zoloft] ule} Hospital Sertraline Hcl quetiapine 25 Quetiapine TABLET 25 mg ORAL completed White MG Oral Tablet Fumarate P [facility] [[facility]] [facility] Quetiapine Fumarate Ranitidine Hcl TABLET 150 ORAL completed White mg [facility] Ranitidine Hcl TABLET 150 ORAL completed White mg [facility] Insurance Providers Payer name Policy Policy ID Covered Covered Policy Plan type / green party ID green party's [employer] n Coverage relationship type to portillo [facility] MEDICAID HMO [id number] SP [id number] [facility] Health Self [place] Self [facility] [id number] PT [id number] [facility] [id number] PT [id number] SELF PAY INSURANCE PT [facility] [id number] PT [id number] COMM PLAN Problems, Conditions, and Diagnoses Code Display Name Description Problem Type Effective Data Sour ce(s) Dates R50.81 Fever presenting FEVER PRESENTING Diagnosis 12/19/2019 [place] with conditions WITH CONDITIONS 06:00:00 AM [facility] [employer] classified CLASSIFIED EDT Care elsewhere ELSEWHERE [employer] D57.3 Sickle-cell trait SICKLE-CELL TRAIT Diagnosis 12/19/2019 [place] 06:00:00 AM [facility] EDT Care Corporation F33.3 Major depressive MAJOR DEPRESSV Diagnosis 12/19/2019 [place] dez disorder, DISORDER, 06:00:00 AM [facility] recurrent, severe RECURRENT, SEVERE EDT Care with psychotic W PSYCH SYMPTOMS Chela oration symptoms G47.00 Insomnia, INSOMNIA, Diagnosis 10/30/2019 [place] unspecified UNSPECIFIED 06:00:00 AM [facility] EDT Care Corporation F41.1 Generalized GENERALIZED Diagnosis 08/08/2019 [place] anxiety disorder ANXIETY DISORDER 03:23:00 PM C [facility] EDT Care Corporation F41.1 Generalized Generalized Diagnosis 06/17/2019 CARELOGIC anxiety disorder anxiety disorder 04:00:00 PM ( Family EST Services [facility]) F43.20 Adjustment Adjustment Diagnosis 06/17/2019 CARELOGIC disorder, disorder, 04:00:00 PM (Family unspecified unspecified EST Services [facility]) R06.02 Shortness of R06.02 Diagnosis 05/21/2019 [facility] breath 09:42:00 PM Hospital EST D57.3 Sickle-cell trait D57.3 Diagnosis 05/21/2019 [facility] [place] [facility] 09:42:00 PM Hospital EST D64.9 Anemia, D64.9 Diagnosis 05/21/2019 [place] unspecified 09:42:00 PM Hospital EST J06.9 Acute upper J06.9 Diagnosis 05/21/2019 [facility] respiratory 09:42:00 PM Hospital infection, EST unspecified Z32.02 Encounter for ENCOUNTER FOR Diagnosis 04/02/2019 [facility] test, TEST, 02:04:00 PM [facility] [employer] result negative RESULT NEGATIVE EST Care Corporation F32.9 Major depressive MAJOR DEPRESSIVE Diagnosis 04/02/2019 [facility] disorder, single DISORDER, SINGLE 02:04:00 PM C [facility]re[facility] episode, EPISODE, EST Care unspecified UNSPECIFIED Corporation F41.9 Anxiety disorder, ANXIETY DISORDER, Diagnosis 04/02/2019 [place] unspecified UNSPECIFIED 02:04:00 PM [facility] EST Care Corporation R16.1 Splenomegaly, not SPLENOMEGALY, NOT Diagnosis 04/02/2019 [place] elsewhere ELSEWHERE 02:04:00 PM [facility] classified CLASSIFIED EST Care Corporation R16.0 Hepatomegaly, not HEPATOMEGALY, NOT Diagnosis 04/02/2019 [place] elsewhere ELSEWHERE 02:04:00 PM [facility] classified CLASSIFIED EST Care Corporation N13.2 Hydronephrosis HYDRONEPHROSIS Diagnosis 04/02/2019 [facility] with renal and WITH RENAL AND 02:04:00 PM [facility] Health ureteral calculous URETERAL CALCULOUS EST Care obstruction [employer] Corporation J90 Pleural effusion, PLEURAL EFFUSION, Diagnosis 04/02/2019 [place] not elsewhere NOT ELSEWHERE 02:04:00 PM [facility] classified CLASSIFIED EST Care Corporation R10.31 Right lower RIGHT LOWER Diagnosis 04/02/2019 [place] quadrant pain QUADRANT PAIN 02:04:00 PM [facility] EST Care Corporation R10.2 Pelvic and PELVIC AND Diagnosis 04/02/2019 [place] perineal pain PERINEAL PAIN 02:04:00 PM [facility] EST Care Corporation R11.0 Nausea R11.0 Diagnosis 02/27/2019 [facility] 06:52:00 PM Hospital EDT R51 Headache R51 Diagnosis 02/27/2019 [facility] 06:52:00 PM Hospital EDT R42 Dizziness and [...] R06.02 Shortness of SHORTNESS OF Diagnosis 01/29/2019 [facility] r breath BREATH 05:49:00 PM [facility] EDT Care Corporation D53.9 Nutritional NUTRITIONAL Diagnosis 01/29/2019 [place] anemia, ANEMIA, 05:49:00 PM [facility] unspecified UNSPECIFIED EDT Care Corporation R51 Headache HEADACHE Diagnosis 01/29/2019 [place] 05:49:00 PM [facility] EDT Care Corporation V72.42 TEST Diagnosis 07/23/2018 NANDA ( [place] EXAMINATION OR POSITIVE 05:43:38 PM [place] TEST POSITIVE EST [facility]) Surgeries/Procedures Procedure Description Date Indications Data Source(s) Diagnostic radiography of 05/21/2019 [facility] [place] chest, combined 12:00:00 AM Hospital posteroanterior and lateral EST (procedure) Electrocardiographic procedure 05/21/2019 [facility] (procedure) 12:00:00 AM Hospital EST Electrocardiographic procedure 02/10/2019 [facility] (procedure) 12:00:00 AM Hospital EDT Emergency dept visit 02/10/2019 Juanjo mathews 12:00:00 AM Hospital EDT Diagnostic radiography of 02/10/2019 [facility] [place] chest, combined 12:00:00 AM Hospital posteroanterior and lateral EDT (procedure) Electrocardiographic procedure 02/10/2019 [facility] (procedure) 12:00:00 AM Hospital EDT Results ID Date Data Source [id number] 02/27/2019 06:37:00 PM EDT [facility] Filler Shaker:SALLY LOU Name Value Range Interpretation Description Data Sup porting Code Source(s) Document(s ) Glucose 102 mg/dL [place] [Mass/volume] [facility] in Capillary blood by Glucometer Procedure Social History Code Duration Value Status Description Data Source(s ) Smoking 05/21/2019 Never smoked completed Never smoked [facility] 09:34:00 PM EST tobacco tobacco (finding) Ho spital (finding) Smoking Unknown if ever completed Unknown if ever [facility] [place] smoked smoked Hospital Smoking Unknown if ever completed Unknown if ever [facility] [place] smoked smoked Hospital Vital Signs ID Date Data Source UNK Name Value Range Interpretation Code Description Data Source(s) Diastolic blood 68 mm[Hg] 68 mm[Hg] [facility] pressure [facility] Systolic blood 114 mm[Hg] 114 mm[Hg] [facility] Respiratory rate 18 /min 18 /min [facility] Heart rate 97 /min 97 /min [facility] Body temperature 36.51347 36.17281 [facility] Body temperature 98.3 [degF] 98.3 [degF] [facility] Body mass index 30.0 kg/m2 30.0 kg/m2 [facility] (BMI) [Ratio] Hospital Body weight 192 [lb_av] 192 [lb_av] [facility] Diastolic blood 71 mm[Hg] 71 mm[Hg] [facility] Systolic blood 110 mm[Hg] 110 mm[Hg] [facility] Respiratory rate 18 /min 18 /min [facility] Heart rate 79 /min 79 /min [facility] Body temperature 36.03476 36.88430 [facility] Body temperature 98.0 [degF] 98.0 [degF] [facility] Body mass index 30.0 kg/m2 30.0 kg/m2 [facility] ins (BMI) [Ratio] Hospital Body weight 180.38 180.38 [lb_av] [facility] [lb_av] Hospital Diastolic blood 79 mm[Hg] 79 mm[Hg] [facility] pressure Hospital Systolic blood 138 mm[Hg] 138 mm[Hg] [facility] Respiratory rate 18 /min 18 /min [facility] Heart rate 92 /min 92 /min [facility] Body temperature 37.97869 37.68590 [facility] Body temperature 98.8 [degF] 98.8 [degF] [facility] Patient Treatment Plan of Care Planned Activity Planned Date Details Description Data Source (s) Doxycycline 100mg (P 04/02/2019 09:35:15 [facility] Rocephin (Ceftriaxon 04/02/2019 09:35:13 [facility] Tylenol Infusion (AD 04/02/2019 02:34:14 [facility] 0.9% NaCl IV 04/02/2019 02:34:14 [facility] Care Cor poration Gastroview PO Contra 04/02/2019 02:34:14 [facility]
--- NOTE | 2020-02-08 06:55 | HP ---
CHIEF COMPLAINT: Abdominal Pain PCP: unknown HISTORY OF PRESENT ILLNESS: Pt. is a 39 y.o [place]ian-speaking F w/ PMHx. of De pression, HTN, Hx. of Renal stones(though Pt. denies), Sickle Cell trait?(Pt. states she get Iron infusions for Sickle Cell Disease, last in July) presenting with abdominal pain that started at 3pm the day of ED arrival. Pt. endorses pain in her back that started suddenly and radiates to her right flank. Pt. endorses a burning sensation on urination x 1 day, subjective fever and decreased PO inta ke. Pt. denies any blood in her stool or urine. Pt. denies remembering what medications she takes. Pt. sees a Transaction Coordinator at [facility]. Pt. states she has been lying in bed a lot recently but did not specify an exact timeframe. Pt.'s LMP was 01/27. Pt. denies cough or shortness of breath. ER course was notable for: (1)Azithro/Ceftriaxone, Morphine, Tylenol, BCx./Ucx. (2)UA, D-dimer, INR, Trop. (3) PAST MEDICAL HISTORY: As above PAST SURGICAL HISTORY: x 6 Social History: Smokin/4 PPD Alcohol: Denies Drugs: Denies Allergies No Known Allergies Allergy (Verified 02/07/20 23:12) HOME MEDICATIONS: Home Medications Medication Instructions Recorded Aripiprazole [Abilify] 10 mg PO DAILY 03/24/19 Fluoxetine HCl [Prozac -] 20 mg PO DAILY 03/24/19 Meclizine HCl 25 mg PO DAILY 03/24/19 traZODone HCL [Trazodone HCl] 50 mg PO HS 03/24/19 Cephalexin Monohydrate [Keflex -] 500 mg PO BID 7 Days #14 capsule 03/25/19 REVIEW OF SYSTEMS As above PHYSICAL EXAMINATION Vital Signs - 24 hr 02/07/20 02/08/20 02/08/20 23:13 03:36 04:16 Temperature 102.0 F H 98.3 F Pulse Rate 69 Pulse Rate [ 90 Right Radial] Respiratory 22 H 18 Rate Blood Pressure 120/84 Blood Pressure 112/70 [Left Arm] O2 Sat by Pulse 99 96 96 Oximetry (%) GENERAL: Awake, alert, and fully oriented, in no acute distress. HEAD: Normal with no signs of trauma. EYES: Sclera anicteric, conjunctiva clear. EARS, NOSE, THROAT: Moist mucous membranes. NECK: Normal range of motion LUNGS: Breath sounds equal, clear to auscultation bilaterally. No wheezes, and no crackles. No accessory muscle use. HEART: Regular rate and rhythm, normal S1 and S2 without murmur, rub or gallop. ABDOMEN: Soft, R. sided abdominal discomfort, not distended, normoactive bowel sounds, no guarding MUSCULOSKELETAL: R. CVA tenderness. UPPER EXTREMITIES: 2+ radial pulses, warm, well-perfused. No cyanosis. No clubbing. No peripheral edema. LOWER EXTREMITIES: 2+ dorsal pedal pulses, warm, well-perfused. No calf tenderness. No peripheral edema. NEUROLOGICAL: Normal speech. Normal gait. PSYCHIATRIC: Cooperative. Good eye contact. Appropriate mood and affect. SKIN: Warm, dry, normal turgor Laboratory Results - last 24 hr 02/08/20 02/08/20 02/08/20 00:37 00:37 00:37 WBC 11.7 H RBC 3.98 Hgb 8.4 L Hct 26.9 L D MCV 67.5 L MCH 21.0 L MCHC 31.1 L RDW 19.5 H Plt Count 104 L D MPV 9.9 D Absolute Neuts (auto) 10.1 H Neutrophils % 86.2 H D Lymphocytes % 7.6 L D Monocytes % 5.4 Eosinophils % 0.6 Basophils % 0.2 Nucleated RBC % 0 Hypochromia 2+ Anisocytosis 1+ Microcytosis 1+ PT with INR 14.40 H INR 1.22 H PTT (Actin FS) 29.0 D-Dimer Sodium 138 Potassium 3.7 Chloride 106 Carbon Dioxide 26 Anion Gap 6 L BUN 9.3 Creatinine 0.9 Est GFR (CKD-EPI)AfAm 92.70 Est GFR (CKD-EPI)NonAf 79.98 Random Glucose 101 Lactic Acid Calcium 8.1 L Total Bilirubin 0.7 AST 10 L ALT 19 Alkaline Phosphatase 123 H Troponin I < 0.02 Total Protein 6.8 Albumin 3.2 L Lipase 64 L Serum , Qual Urine Color Urine Appearance Urine pH Ur Specific [place] Urine Protein Urine Glucose (UA) Urine Ketones Urine Blood Urine Nitrite Urine Bilirubin Urine Urobilinogen Ur Leukocyte Esterase 02/08/20 02/08/20 02/08/20 00:37 00:40 00:47 WBC RBC Hgb Hct MCV MCH MCHC RDW Plt Count MPV Absolute Neuts (auto) Neutrophils % Lymphocytes % Monocytes % Eosinophils % Basophils % Nucleated RBC % Hypochromia Anisocytosis Microcytosis PT with INR INR PTT (Actin FS) D-Dimer Sodium Potassium Chloride Carbon Dioxide Anion Gap BUN Creatinine Est GFR (CKD-EPI)AfAm Est GFR (CKD-EPI)NonAf Random Glucose Lactic Acid 1.5 Calcium Total Bilirubin AST ALT Alkaline Phosphatase Troponin I Total Protein Albumin Lipase Serum , Qual Negative Urine Color Yellow Urine Appearance Clear Urine pH 6.5 Ur Specific [place] 1.014 Urine Protein Negative Urine Glucose (UA) Negative Urine Ketones Negative Urine Blood Negative Urine Nitrite Negative Urine Bilirubin Negative Urine Urobilinogen 0.2 Ur Leukocyte Esterase Negative 02/08/20 03:56 WBC RBC Hgb Hct MCV MCH MCHC RDW Plt Count MPV Absolute Neuts (auto) Neutrophils % Lymphocytes % Monocytes % Eosinophils % Basophils % Nucleated RBC % Hypochromia Anisocytosis Microcytosis PT with INR INR PTT (Actin FS) D-Dimer 513 H Sodium Potassium Chloride Carbon Dioxide Anion Gap BUN Creatinine Est GFR (CKD-EPI)AfAm Est GFR (CKD-EPI)NonAf Random Glucose Lactic Acid Calcium Total Bilirubin AST ALT Alkaline Phosphatase Troponin I Total Protein Albumin Lipase Serum , Qual Urine Color Urine Appearance Urine pH Ur Specific [place] Urine Protein Urine Glucose (UA) Urine Ketones Urine Blood Urine Nitrite Urine Bilirubin Urine Urobilinogen Ur Leukocyte Esterase ASSESSMENT/PLAN: Pt. is a 39 y.o [place]ian-speaking F w/ PMHx. of Depression, HTN, Hx. of Renal stones (though Pt. denies), Sickle Cell trait? (Pt. states she get Iron infusions for Sickle Cell Disease, last in July) presenting with abdominal pain that started at 3pm the day of ED arrival. #Abdominal Pain UA - CT A/P negative for acute abdominal pathology. R. kidney upper pole 1mm non- obstructing stone. note made of b/l atelectasis and pneumonia; f/u official read consider outpatient follow up with nephrology for stone analysis Pain control #CAP CXR positive for FELICIANO infiltrate r/o Covid c/w Azithro/Ceftriaxone ID and Pulmonology consults appreciated EKG: QTc wnl, sinus tachycardia to 106 Thrombocytopenia is likely from being septic supplemental O2 PRN #Sickle Cell Trait/Disease and Anemia f/u records to find if Pt. has trait or disease f/u Iron studies, FOBT, haptoglobin and reticulocyte count #FEN no IVF, encourage PO intake monitor electrolytes and replete as needed Sodium controlled diet #DVT Ppx. Lovenox 40 SQ Family Medical History Family History: As Documented Visit type - Emergency Visit Emergency Visit: Yes ED Registration Date: 02/08/20 Care time: The patient presented to the Emergency Department on the above date and was hospitalized for further evaluation of their emergent condition. - New Patient This patient is new to me today: Yes Date on this admission: 02/10/20 - Critical Care Critical Care patient: No ATTENDING PHYSICIAN STATEMENT I saw and evaluated the patient. I reviewed the resident's note and discussed the case with the resident. I agree with the resident's findings and plan as documented. SUBJECTIVE: OBJECTIVE: ASSESSMENT AND PLAN:
[2020-02-08] MEDS ORDERED: KETOROLAC TROMETHAMINE 30 MG/1 ML VIAL IVPUSH ONE (08:08)
[2020-02-08] MEDS: SODIUM CHLORIDE 1,000 ML IV SCH (08:41)
[2020-02-08] MEDS: ACETAMINOPHEN 325 MG TABLET (FP) PO PRN ×2 (08:43→21:05)
[2020-02-08 09:09] LABS: BASO % 0.8 % (0-2.0); EOS % 0.8 % (0-4.5); HEMATOCRIT 26.7 % (32.4-45.2); HEMOGLOBIN 8.4 GM/dL (10.7-15.3); LYMPH % 12.7 % (8-40); MCHC 31.3 g/dl (32.0-36.0); MEAN CELL VOLUME 67.3 fl (80-96); MEAN PLT VOLUME 9.4 fl (7.5-11.1); MONO % 4.7 % (3.8-10.2); PLATELET COUNT 102 K/MM3 (134-434); RBC 3.97 M/mm3 (3.60-5.2); RDW 19.8 % (11.6-15.6); WHITE BLOOD COUNT 8.6 K/mm3 (4.0-10.0)
[2020-02-08 09:10] LABS: INR 1.34 (0.83-1.09); PROTHROMBIN TIME (PATIENT) 15.9 SEC (9.7-13.0)
--- NOTE | 2020-02-08 09:25 | EKG ---
Test Reason : Blood Pressure : / mmHG Vent. Rate : 105 BPM Atrial Rate : 105 BPM P-R Int : 160 ms QRS Dur : 068 ms QT Int : 278 ms P-R-T Axes : 038 034 038 degrees QTc Int : 367 ms SINUS TACHYCARDIA NONSPECIFIC T WAVE ABNORMALITY ABNORMAL ECG WHEN COMPARED WITH ECG OF 24-MAR-2019 18:52, NONSPECIFIC T WAVE ABNORMALITY, WORSE IN LATERAL LEADS QT HAS SHORTENED Confirmed by Saida Sr ([id number]) on 02/08/2020 9:25:17 AM Referred By: Confirmed By:Saida Sr
--- NOTE | 2020-02-08 09:26 | CON.ID ---
Consult Consult Specialty:: infectious diseases Referred by:: hospitalist Reason for Consultation:: pna,uti - History of Present Illness Chief Complaint: abd pain History of Present Illness: 39 y.o Citizen Of [place]-speaking F w/ PMHx. of Depression, HTN, Hx. of Renal stones, Sickle Cell trait?(Pt. states she get Iron infusions for Sickle Cell Disease, last in July) presenting with abdominal pain that started at 3pm the day of ED arrival. Pt. endorses pain in her back that started suddenly and radiates to her right flank. Pt. endorses a burning sensation on urination x 1 day, subjective fever and decreased PO intake. Pt. denies any blood in her stool or urine. Pt. denies remembering what medications she takes. Pt. sees a Material Spreader at [facility]. Pt. states she has been lying in bed a lot recently but did not specify an exact timeframe. Pt.'s LMP was 01/27 patient currently feels better and ahs received abx - History Source History Provided By: Patient Limitations to Obtaining History: No Limitations - Past Medical History ...LMP: 12/07/17 ...: No - Alcohol/Substance Use Hx Alcohol Use: No - Smoking History Smoking history: Unknown if ever smoked Have you smoked in the past 12 months: No Aproximately how many cigarettes per day: 5 Home Medications - Allergies Allergies/Adverse Reactions: Allergies Allergy/AdvReac Type Severity Reaction Status Date / Time No Known Allergies Allergy Verified 02/07/20 23:12 - Home Medications Home Medications: Ambulatory Orders Aripiprazole [Abilify] 5 mg PO DAILY 03/24/19 RX: Fluoxetine HCl [Prozac -] 20 mg PO DAILY 03/24/19 RX: Meclizine HCl 25 mg PO DAILY 03/24/19 traZODone HCL [Trazodone HCl] 50 mg PO HS 03/24/19 Cephalexin Monohydrate [Keflex -] 500 mg PO BID 7 Days #14 capsule 03/25/19 Review of Systems - Review of Systems Constitutional: reports: No Symptoms Eyes: reports: No Symptoms HENT: reports: No Symptoms Neck: reports: No Symptoms Cardiovascular: reports: No Symptoms Respiratory: reports: No Symptoms Gastrointestinal: reports: Abdominal Pain Genitourinary: reports: No Symptoms Musculoskeletal: reports: No Symptoms Integumentary: reports: No Symptoms Neurological: reports: No Symptoms Endocrine: reports: No Symptoms Hematology/Lymphatic: reports: No Symptoms Psychiatric: reports: No Symptoms Physical Exam Vital Signs: Vital Signs Temperature 100.3 F H 02/08/20 08:24 Pulse Rate 110 H 02/08/20 08:24 Respiratory Rate 18 02/08/20 08:24 Blood Pressure 123/66 02/08/20 08:24 O2 Sat by Pulse Oximetry (%) 99 02/08/20 08:24 Constitutional: Yes: Well Nourished, No Distress, Obese Eyes: Yes: Conjunctiva Clear HENT: Yes: Atraumatic, Normocephalic Neck: Yes: Supple, Trachea Midline Cardiovascular: Yes: Regular Rate and Rhythm Respiratory: Yes: Regular, CTA Bilaterally Gastrointestinal: Yes: Normal Bowel Sounds, Soft, Tenderness Musculoskeletal: Yes: WNL Extremities: Yes: WNL Neurological: Yes: Alert, Oriented Psychiatric: Yes: Alert, Oriented Labs: CBC, BMP 02/08/20 08:38 Imaging - Results Chest X-ray: Report Reviewed, Image Reviewed Cat Scan: Report Reviewed, Image Reviewed Assessment/Plan 39 y.o Citizen Of [place]-speaking F w/ PMHx. of Depression, HTN, Hx. of Renal stones ( though Pt. denies), Sickle Cell trait? (Pt. states she get Iron infusions for Sickle Cell Disease, last in July) presenting with abdominal pain that started at 3pm the day of ED arrival. abd pain cap uti sickle cell trait plan continue current abx i have low suspicion for pneumonia
[2020-02-08 09:29] LABS: BILIRUBIN,TOTAL 0.7 mg/dL (0.2-1); BLOOD UREA NITROGEN 6.5 mg/dL (7-18); CALCIUM 8.1 mg/dL (8.5-10.1); CREATININE 0.8 mg/dL (0.55-1.3); PHOSPHOROUS 3.1 mg/dL (2.5-4.9); POTASSIUM 3.3 mmol/L (3.5-5.1); TOT PROT 6.7 g/dl (6.4-8.2)
--- NOTE | 2020-02-08 09:35 | PN ---
Progress Note (short form) - Note Progress Note: Subjective: [employer] phone did not work, ER staff helped with translation cont to have fever, feels very tired. reports sudden onset of pain, in R flank that radiated to RLQ. she had fever. she reproted dysuria and saw blood in urine yesterday. she had nephrolithiasis last year. she had blood transfusion in July for SSD . this episode does not feel similar to her SS crises . has nausea but no vomiting. she has been feeling thirsty . denies cough, SOB , or CP Objective: Vital Signs: Last Vital Signs Temp Pulse Resp BP Pulse Ox 100.3 F H 110 H 18 123/66 99 02/08/20 08:24 02/08/20 08:24 02/08/20 08:24 02/08/20 08:24 02/08/20 08:24 Laboratory Results - last 24 hr 02/08/20 02/08/20 02/08/20 00:37 00:37 00:37 WBC 11.7 H RBC 3.98 Hgb 8.4 L Hct 26.9 L D MCV 67.5 L MCH 21.0 L MCHC 31.1 L RDW 19.5 H Plt Count 104 L D MPV 9.9 D Absolute Neuts (auto) 10.1 H Neutrophils % 86.2 H D Lymphocytes % 7.6 L D Monocytes % 5.4 Eosinophils % 0.6 Basophils % 0.2 Nucleated RBC % 0 Hypochromia 2+ Anisocytosis 1+ Microcytosis 1+ PT with INR 14.40 H INR 1.22 H PTT (Actin FS) 29.0 D-Dimer Sodium 138 Potassium 3.7 Chloride 106 Carbon Dioxide 26 Anion Gap 6 L BUN 9.3 Creatinine 0.9 Est GFR (CKD-EPI)AfAm 92.70 Est GFR (CKD-EPI)NonAf 79.98 Random Glucose 101 Lactic Acid Calcium 8.1 L Iron TIBC Iron Saturation Unsaturated IBC Total Bilirubin 0.7 AST 10 L ALT 19 Alkaline Phosphatase 123 H Troponin I < 0.02 Total Protein 6.8 Albumin 3.2 L Lipase 64 L Serum , Qual Urine Color Urine Appearance Urine pH Ur Specific [place] Urine Protein Urine Glucose (UA) Urine Ketones Urine Blood Urine Nitrite Urine Bilirubin Urine Urobilinogen Ur Leukocyte Esterase 02/08/20 02/08/20 02/08/20 00:37 00:40 00:47 WBC RBC Hgb Hct MCV MCH MCHC RDW Plt Count MPV Absolute Neuts (auto) Neutrophils % Lymphocytes % Monocytes % Eosinophils % Basophils % Nucleated RBC % Hypochromia Anisocytosis Microcytosis PT with INR INR PTT (Actin FS) D-Dimer Sodium Potassium Chloride Carbon Dioxide Anion Gap BUN Creatinine Est GFR (CKD-EPI)AfAm Est GFR (CKD-EPI)NonAf Random Glucose Lactic Acid 1.5 Calcium Iron TIBC Iron Saturation Unsaturated IBC Total Bilirubin AST ALT Alkaline Phosphatase Troponin I Total Protein Albumin Lipase Serum , Qual Negative Urine Color Yellow Urine Appearance Clear Urine pH 6.5 Ur Specific [place] 1.014 Urine Protein Negative Urine Glucose (UA) Negative Urine Ketones Negative Urine Blood Negative Urine Nitrite Negative Urine Bilirubin Negative Urine Urobilinogen 0.2 Ur Leukocyte Esterase Negative 02/08/20 02/08/20 02/08/20 03:56 08:38 08:38 WBC 8.6 RBC 3.97 Hgb 8.4 L Hct 26.7 L MCV 67.3 L MCH 21.0 L MCHC 31.3 L RDW 19.8 H Plt Count MPV Absolute Neuts (auto) 7.0 Neutrophils % 81.0 Lymphocytes % 12.7 D Monocytes % 4.7 Eosinophils % 0.8 Basophils % 0.8 D Nucleated RBC % 0 Hypochromia Anisocytosis Microcytosis PT with INR 15.90 H INR 1.34 H PTT (Actin FS) D-Dimer 513 H Sodium Potassium Chloride Carbon Dioxide Anion Gap BUN Creatinine Est GFR (CKD-EPI)AfAm Est GFR (CKD-EPI)NonAf Random Glucose Lactic Acid Calcium Iron TIBC Iron Saturation Unsaturated IBC Total Bilirubin AST ALT Alkaline Phosphatase Troponin I Total Protein Albumin Lipase Serum , Qual Urine Color Urine Appearance Urine pH Ur Specific [place] Urine Protein Urine Glucose (UA) Urine Ketones Urine Blood Urine Nitrite Urine Bilirubin Urine Urobilinogen Ur Leukocyte Esterase 02/08/20 08:38 WBC RBC Hgb Hct MCV MCH MCHC RDW Plt Count MPV Absolute Neuts (auto) Neutrophils % Lymphocytes % Monocytes % Eosinophils % Basophils % Nucleated RBC % Hypochromia Anisocytosis Microcytosis PT with INR INR PTT (Actin FS) D-Dimer Sodium Potassium Chloride Carbon Dioxide Anion Gap BUN Creatinine Est GFR (CKD-EPI)AfAm Est GFR (CKD-EPI)NonAf Random Glucose Lactic Acid Calcium Iron 14 L TIBC 314 Iron Saturation 4 L Unsaturated IBC 300 H Total Bilirubin AST ALT Alkaline Phosphatase Troponin I Total Protein Albumin Lipase Serum , Qual Urine Color Urine Appearance Urine pH Ur Specific [place] Urine Protein Urine Glucose (UA) Urine Ketones Urine Blood Urine Nitrite Urine Bilirubin Urine Urobilinogen Ur Leukocyte Esterase Physical Exam: NAD, awake, alert, cooperative. dry MM, no JVD, no facial droop CV: RRR, no MRG Lungs: CTAB Abd: Soft, TTP in supra pubic area, and LLQ and RLQ. no rebound , no guarding. Ext : No edema or erythema on upper or lower extremities no rash on skin Imaging: CT of abd/p images reviewed. report is pending . Assessment/Plan: 39 y/o lady with h/o nephrolithiasis, paranoia, sickle cell disease , depression , sickle cell disease , and other medical problems who presented with abd pain and fever 1- Sepsis , source is not clear but my suspicion is urinary tract. doubt sickle cell crices. no obstructing stone was seen on CT . doubt appendicitis. need to r/o bacteremia. I do not suspect PNA , or acute chest syndrome - follow blood cx and Urine cx. - Abx per ID, Recs to follow - start IVF - tylenol for fever - monitor labs - follow covid - follwo CT report 2- h/o SSD: last transfusion in 08/07 . do not suspect acute crises - LDH, nl bili NL. chronic anemia. -m check retic count 3- h/o depression and bipolar: resume fluoxetine 40 mg daily and abilify 10 mg daily . doses confirmed with patient 4- hypokalemia : replete Rest of the meds will be brought by patient and will need to be confirmed DVT Pcx Visit type - Emergency Visit Emergency Visit: Yes ED Registration Date: 02/08/20 Care time: The patient presented to the Emergency Department on the above date and was hospitalized for further evaluation of their emergent condition. - New Patient This patient is new to me today: Yes Date on this admission: 02/08/20 - Critical Care Critical Care patient: No
[2020-02-08] MEDS ORDERED: POTASSIUM CHLORIDE TABS 20 MEQ TABLET.ER (FP) PO ONE ×3 (09:36→10:21)
[2020-02-08] MEDS ORDERED: ENOXAPARIN NA (PORCINE) 40 MG/0.4 ML DISP.SYRIN SQ ONE (09:51)
[2020-02-08] MEDS ORDERED: CEFEPIME 1 GM/100 ML BAG IVPB ONE (09:51)
[2020-02-08] MEDS: ENOXAPARIN NA (PORCINE) 40 MG/0.4 ML DISP.SYRIN SQ SCH (09:53)
[2020-02-08] MEDS ORDERED: CEFEPIME HCL/D5W 1 GM/50 ML BAG IVPB SCH (10:00)
[2020-02-08] MEDS ORDERED: ARIPiprazole 5 MG TABLET ONE (10:15)
[2020-02-08] MEDS: ARIPiprazole 10 MG TABLET PO SCH (10:16)
[2020-02-08] MEDS: FLUoxetine HCL 20 MG CAPSULE PO SCH (10:29)
[2020-02-08 13:29] LABS: PLATELET ESTIMATE DECREASED
[2020-02-08] MEDS: CEFEPIME 1 GM in DEXTROSE 5%-WATER 100 ML IVPB SCH (17:22)
[2020-02-08] MEDS ORDERED: ACETAMINOPHEN 325 MG TABLET (FP) ONE (17:27)
[2020-02-09 00:08] VITALS: BMI 36.1
[2020-02-09] MEDS: SODIUM CHLORIDE 1,000 ML IV SCH ×2 (00:40→10:41)
[2020-02-09] MEDS ORDERED: CEFEPIME HCL 1 GM VIAL (RESTRICTED TO ID) ONE ×3 (01:10→17:21)
[2020-02-09] MEDS ORDERED: DEXTROSE 5%-WATER 100 ML IVPB ONE ×3 (01:10→17:21)
[2020-02-09] MEDS: CEFEPIME 1 GM in DEXTROSE 5%-WATER 100 ML IVPB SCH ×3 (01:16→17:26)
[2020-02-09] MEDS ORDERED: AZITHROMYCIN IVPB 500 MG/250 ML BAG IVPB SCH (10:00)
[2020-02-09] MEDS ORDERED: CEFTRIAXONE 1 GM in DEXTROSE 5%-WATER - 50 ML IVPB SCH (10:00)
[2020-02-09] MEDS ORDERED: ARIPiprazole 5 MG TABLET ONE (10:32)
[2020-02-09] MEDS ORDERED: PT OWN MED DRAWER 7, Y5N ONE (10:33)
[2020-02-09] MEDS: ENOXAPARIN NA (PORCINE) 40 MG/0.4 ML DISP.SYRIN SQ SCH (10:39)
[2020-02-09] MEDS: FLUoxetine HCL 20 MG CAPSULE PO SCH ×2 (10:40→15:08)
[2020-02-09] MEDS: ARIPiprazole 10 MG TABLET PO SCH (10:40)
[2020-02-09] MEDS: ACETAMINOPHEN 325 MG TABLET (FP) PO PRN (10:40)
--- NOTE | 2020-02-09 11:25 | CON.PULM ---
Consult Consult Specialty:: PULMONARY Referred by:: Dr Mcmillan Reason for Consultation:: r/o PNA - History of Present Illness Chief Complaint: fever History of Present Illness: 39yo female with h/o HTN, nephrolithiasis, depression, sickle cell trait who was admitted with fevers and abdominal pain radiating to her right flank. Also reports some dysuria. Denies shortness of breath, cough or wheezing. Started on empiric antibiotics with improvement, currently states her abdominal pain is improved but now with headache and nausea. She is a current smoker, denies history of asthma or COPD. - History Source History Provided By: Patient, Medical Record Limitations to Obtaining History: Language Barrier - Past Medical History Cardio/Vascular: Yes: HTN ...LMP: 12/07/17 ...: No - Alcohol/Substance Use Hx Alcohol Use: No - Smoking History Smoking history: Current every day smoker Have you smoked in the past 12 months: Yes Aproximately how many cigarettes per day: 5 Home Medications - Allergies Allergies/Adverse Reactions: Allergies Allergy/AdvReac Type Severity Reaction Status Date / Time No Known Allergies Allergy Verified 02/07/20 23:12 - Home Medications Home Medications: Ambulatory Orders Aripiprazole [Abilify] 10 mg PO DAILY 03/24/19 Fluoxetine HCl [Prozac -] 20 mg PO DAILY 03/24/19 Meclizine HCl 25 mg PO DAILY 03/24/19 traZODone HCL [Trazodone HCl] 50 mg PO HS 03/24/19 Cephalexin Monohydrate [Keflex -] 500 mg PO BID 7 Days #14 capsule 03/25/19 Review of Systems - Review of Systems Constitutional: reports: Fever, Weakness Eyes: denies: Recent Change in Vision HENT: denies: Nasal Congestion, Throat Pain Neck: denies: Stiffness, Tenderness Cardiovascular: denies: Chest Pain, Shortness of Breath Respiratory: denies: Cough, SOB on Exertion, Wheezing Gastrointestinal: reports: Abdominal Pain, Nausea. denies: Vomiting Genitourinary: reports: Dysuria. denies: Hematuria Neurological: reports: Headache. denies: Dizziness Endocrine: denies: Unexplained Weight Loss Physical Exam Vital Sings: Vital Signs Temperature 99 F 02/09/20 06:32 Pulse Rate 86 02/09/20 06:32 Respiratory Rate 18 02/09/20 06:32 Blood Pressure 133/54 L 02/09/20 06:32 O2 Sat by Pulse Oximetry (%) 98 02/09/20 06:32 Constitutional: Yes: Calm Eyes: Yes: Conjunctiva Clear, EOM Intact HENT: Yes: Atraumatic, Normocephalic Neck: Yes: Supple, Trachea Midline Cardiovascular: Yes: Regular Rate and Rhythm Respiratory: Yes: Diminished (at bases) ...Clubbing: No Gastrointestinal: Yes: Normal Bowel Sounds. No: Tenderness Edema: No Labs: CBC, BMP 02/08/20 08:38 02/08/20 08:38 Imaging - Results Chest X-ray: Report Reviewed, Image Reviewed (basilar atelectasis) Assessment/Plan Fever r/o UTI Nephrolithiasis HTN Depression - pt without respiratory complaints and imaging more suggestive of atelectasis, do not suspect pneumonia at this time - on empiric antibiotics - f/u cultures, serologies - O2 as needed - incentive spirometry - DVT prophylaxis Thank you for this consult Jose Roy MD
[2020-02-09 12:17] LABS: BLOOD UREA NITROGEN 4.3 mg/dL (7-18); CALCIUM 7.9 mg/dL (8.5-10.1); CREATININE 0.6 mg/dL (0.55-1.3); POTASSIUM 3.3 mmol/L (3.5-5.1)
--- NOTE | 2020-02-09 13:20 | PN ---
Progress Note, Physician History of Present Illness: stable no new issues - Current Medication List Current Medications: Active Medications Acetaminophen (Tylenol -) 650 mg PO Q6H PRN PRN Reason: FEVER Last Admin: 02/09/20 10:40 Dose: 650 mg Documented by: Aripiprazole (Abilify) 10 mg PO DAILY [facility] Last Admin: 02/09/20 10:40 Dose: 10 mg Documented by: Enoxaparin Sodium (Lovenox -) 40 mg SQ DAILY [facility] Last Admin: 02/09/20 10:39 Dose: 40 mg Documented by: Fluoxetine HCl (Prozac -) 40 mg PO DAILY [facility] Last Admin: 02/09/20 10:40 Dose: 40 mg Documented by: Sodium Chloride (Normal Saline -) 1,000 mls @ 125 mls/hr IV ASDIR LIAM Last Admin: 02/09/20 10:41 Dose: 125 mls/hr Documented by: Cefepime HCl 1 gm/ Dextrose 100 mls @ 100 mls/hr IVPB Q8H-IV LIAM; Protocol Last Admin: 02/09/20 10:38 Dose: 100 mls/hr Documented by: - Objective Vital Signs: Vital Signs Temperature 99 F 02/09/20 06:32 Pulse Rate 86 02/09/20 06:32 Respiratory Rate 18 02/09/20 06:32 Blood Pressure 133/54 L 02/09/20 06:32 O2 Sat by Pulse Oximetry (%) 98 02/09/20 06:32 Constitutional: Yes: No Distress, Calm Cardiovascular: Yes: S1, S2 Respiratory: Yes: Regular, CTA Bilaterally Gastrointestinal: Yes: Normal Bowel Sounds, Soft Musculoskeletal: Yes: WNL Extremities: Yes: WNL Neurological: Yes: Alert, Oriented Psychiatric: Yes: Alert, Oriented Labs: CBC, BMP 02/08/20 08:38 02/09/20 11:00 INR, PTT INR 1.34 (0.83-1.09) H 02/08/20 08:38 Assessment/Plan 39 y.o [place]-speaking F w/ PMHx. of Depression, HTN, Hx. of Renal stones (though Pt. denies), Sickle Cell trait? (Pt. states she get Iron infusions for Sickle Cell Disease, last in July) presenting with abdominal pain that started at 3pm the day of ED arrival. abd pain cap uti sickle cell trait plan continue current abx await for identification for the bacteria
--- NOTE | 2020-02-09 14:26 | PN ---
Physical Exam: SUBJECTIVE: Patient seen and examined. Pt stated her abd pain has improved since admission. She complained of nausea and increase urinary frequency. Used [employer] technology engineer ID [id number]. OBJECTIVE: Vital Signs Period Temp Pulse Resp BP Sys/Nichols Pulse Ox Last 24 Hr 98.8 F-100.1 F 82-110 17-18 109-133/54-80 94-99 GENERAL: Somnolent, but arousable. HEENT: NCAT, EOMI, moist mucus membranes. CARDIAC: Regular rate and rhythm, no murmur. RESPIRATORY: CTA b/l ABDOMEN: Soft, tender to palpation on RLQ>LLQ. Suprapubic tenderness. EXTREMITIES: Warm, well-perfused, no edema SKIN: Warm, dry. CBC, BMP 02/08/20 08:38 02/09/20 11:00 Active Medications Acetaminophen (Tylenol -) 650 mg PO Q6H PRN PRN Reason: FEVER Last Admin: 02/09/20 10:40 Dose: 650 mg Documented by: Aripiprazole (Abilify) 10 mg PO DAILY [facility] Last Admin: 02/09/20 10:40 Dose: 10 mg Documented by: Enoxaparin Sodium (Lovenox -) 40 mg SQ DAILY [facility] Last Admin: 02/09/20 10:39 Dose: 40 mg Documented by: Fluoxetine HCl (Prozac -) 20 mg PO DAILY [facility] Last Admin: 02/09/20 15:08 Dose: Not Given Documented by: Cefepime HCl 1 gm/ Dextrose 100 mls @ 100 mls/hr IVPB Q8H-IV [facility]; Protocol Last Admin: 02/09/20 17:26 Dose: 100 mls/hr Documented by: ASSESSMENT/PLAN: Pt is a 39 yo F (Salvadorean-speaking) w/ PMH of Depression, bipolar disorder, HTN, nephrolithiasis, Sickle Cell trait who presented to ED w/ abd pain and fever. Currently admitted for sepsis secondary to UTI Sepsis, secondary to UTI, improved - c/w cefepime (started 02/07). Today is day 2. - c/w acetaminophen for pain/fever - f/u sensitivities of cultures - zofran for nausea Sickle cell trait -not in sickle cell crisis -Pt noted to have micorcytic anemia -f/u reticulocyte count, haptoglobin Depression, bipolar disorder - resumed home dose fluoxetine and abilify Hypokalemia -repleted, f/u BMP tomorrow FEN no IVF, encourage PO intake monitor electrolytes and replete as needed Sodium controlled diet Ppx -DVT: lovenox Dispo: continue to monitor in med/surg Visit type - Emergency Visit Emergency Visit: Yes ED Registration Date: 02/08/20 Care time: The patient presented to the Emergency Department on the above date and was hospitalized for further evaluation of their emergent condition. - New Patient This patient is new to me today: Yes Date on this admission: 02/09/20 - Critical Care Critical Care patient: No ATTENDING PHYSICIAN STATEMENT I saw and evaluated the patient. I reviewed the resident's note and discussed the case with the resident. I agree with the resident's findings and plan as documented. SUBJECTIVE: OBJECTIVE: ASSESSMENT AND PLAN:
[2020-02-09] MEDS ORDERED: POTASSIUM CHLORIDE TABS 20 MEQ TABLET.ER (FP) PO ONE (15:01)
[2020-02-09] MEDS ORDERED: TRIMETHOBENZAMIDE HCL 300 MG CAPSULE PO ONE (16:20)
--- NOTE | 2020-02-09 17:04 | PN ---
Teaching Attending Note Name of Resident: Emelia Isaacs ATTENDING PHYSICIAN STATEMENT I saw and evaluated the patient. I reviewed the resident's note and discussed the case with the resident. I agree with the resident's findings and plan as documented. SUBJECTIVE: No fever or chills. she feels better . no WOOTEN , has mild nausea but no vomiting. OBJECTIVE: NAD, awake, alert, cooperative. MMM CV: RRR, no MRG. Lungs: CTAB Abd: Soft, minimal tenderness in suprapubic area. splene is percussed inlast left intercostal spaces , not palpated Ext: No edema or erythema on upper or lower extremities Assessment/Plan: 39 y/o lady with h/o nephrolithiasis, paranoia, sickle cell trait , depression , sickle cell disease , and other medical problems who presented with abd pain and fever 1- Sepsis, due to UTI. - improved - cont cefepime , follow final urine cx ( [facility] ) - final CT report reviewed - dc IVF . encourage oral hydration - d/w dr. Ambrocio/ELSIE 2- h/o sickle cell trait: confirmed with her she has trait not disease . -micorcytic anemia noted with nl TIBC . ferritin is pending -m check retic count 3- H/o depression and bipolar: cont fluoxetine 40 mg daily and abilify 10 mg daily . 4- Hypokalemia : replete HLOC
[2020-02-09] MEDS: KCL 10 MEQ IVPB 10 MEQ/100 ML INFUS.BAG IVPB SCH (17:26)
[2020-02-09] MEDS ORDERED: ONDANSETRON 4 MG/2 ML VIAL IVPUSH ONE (17:52)
[2020-02-09 23:02] LABS: BLOOD UREA NITROGEN 5.5 mg/dL (7-18); CALCIUM 8.4 mg/dL (8.5-10.1); CREATININE 0.7 mg/dL (0.55-1.3); POTASSIUM 3.8 mmol/L (3.5-5.1)
[2020-02-10] MEDS ORDERED: DEXTROSE 5%-WATER 100 ML IVPB ONE ×2 (01:21→09:54)
[2020-02-10] MEDS ORDERED: CEFEPIME HCL 1 GM VIAL (RESTRICTED TO ID) ONE ×2 (01:21→09:54)
[2020-02-10] MEDS: CEFEPIME 1 GM in DEXTROSE 5%-WATER 100 ML IVPB SCH ×2 (01:26→10:39)
[2020-02-10] MEDS: ACETAMINOPHEN 325 MG TABLET (FP) PO PRN (01:26)
[2020-02-10 08:31] LABS: BLOOD UREA NITROGEN 5.7 mg/dL (7-18); CALCIUM 8.4 mg/dL (8.5-10.1); CREATININE 0.6 mg/dL (0.55-1.3); POTASSIUM 3.4 mmol/L (3.5-5.1)
[2020-02-10] MEDS ORDERED: ARIPiprazole 5 MG TABLET ONE (09:54)
--- NOTE | 2020-02-10 10:14 | PN ---
Progress Note (short form) - Note Progress Note: PULMONARY Feels better. Nausea resolved. Tolerating PO. No cough, fevers but low grade temp overnight. Vital Signs Period Temp Pulse Resp BP Sys/Nichols Pulse Ox Last 24 Hr 98.9 F-100.2 F 82-96 18-18 120-137/79-92 96-98 Gen: NAD at rest Heart: RRR Lung: decreased breath sounds at the bases Abd: soft, nontender Ext: no edema CBC, BMP 02/08/20 08:38 02/10/20 06:00 Active Medications Acetaminophen (Tylenol -) 650 mg PO Q6H PRN PRN Reason: FEVER Last Admin: 02/10/20 01:26 Dose: 650 mg Documented by: Aripiprazole (Abilify) 10 mg PO DAILY [facility] Last Admin: 02/09/20 10:40 Dose: 10 mg Documented by: Enoxaparin Sodium (Lovenox -) 40 mg SQ DAILY [facility] Last Admin: 02/09/20 10:39 Dose: 40 mg Documented by: Fluoxetine HCl (Prozac -) 20 mg PO DAILY [facility] Last Admin: 02/09/20 15:08 Dose: Not Given Documented by: Cefepime HCl 1 gm/ Dextrose 100 mls @ 100 mls/hr IVPB Q8H-IV [facility]; Protocol Last Admin: 02/10/20 01:26 Dose: 100 mls/hr Documented by: A/P UTI Nephrolithiasis Atelectasis Anemia/Thrombocytopenia HTN Depression - monitor CBC on antibiotics - pt without respiratory complaints and imaging more suggestive of atelectasis, do not suspect pneumonia at this time - continue antibiotics - f/u cultures - O2 as needed - incentive spirometry - DVT prophylaxis
[2020-02-10] MEDS: FLUoxetine HCL 20 MG CAPSULE PO SCH (10:38)
[2020-02-10] MEDS: ENOXAPARIN NA (PORCINE) 40 MG/0.4 ML DISP.SYRIN SQ SCH (10:39)
[2020-02-10] MEDS: ARIPiprazole 10 MG TABLET PO SCH (10:40)
--- NOTE | 2020-02-10 12:20 | PN ---
Progress Note, Physician History of Present Illness: stable no new issues - Current Medication List Current Medications: Active Medications Acetaminophen (Tylenol -) 650 mg PO Q6H PRN PRN Reason: FEVER Last Admin: 02/10/20 01:26 Dose: 650 mg Documented by: Aripiprazole (Abilify) 10 mg PO DAILY [facility] Last Admin: 02/10/20 10:40 Dose: 10 mg Documented by: Enoxaparin Sodium (Lovenox -) 40 mg SQ DAILY [facility] Last Admin: 02/10/20 10:39 Dose: 40 mg Documented by: Fluoxetine HCl (Prozac -) 20 mg PO DAILY [facility] Last Admin: 02/10/20 10:38 Dose: 20 mg Documented by: Ceftriaxone Sodium 1 gm/ (Dextrose) 50 mls @ 200 mls/hr IVPB DAILY [facility]; Protocol - Objective Vital Signs: Vital Signs Temperature 99.1 F 02/10/20 09:05 Pulse Rate 86 02/10/20 09:05 Respiratory Rate 17 02/10/20 09:05 Blood Pressure 120/77 02/10/20 09:05 O2 Sat by Pulse Oximetry (%) 100 02/10/20 09:05 Constitutional: Yes: No Distress, Calm Cardiovascular: Yes: S1, S2 Respiratory: Yes: Regular, CTA Bilaterally Gastrointestinal: Yes: Normal Bowel Sounds, Soft Musculoskeletal: Yes: WNL Extremities: Yes: Other Neurological: Yes: Alert, Oriented Psychiatric: Yes: Alert, Oriented Labs: CBC, BMP 02/08/20 08:38 02/10/20 06:00 INR, PTT INR 1.34 (0.83-1.09) H 02/08/20 08:38 Assessment/Plan 39 y.o [place]orran-speaking F w/ PMHx. of Depression, HTN, Hx. of Renal stones (though Pt. denies), Sickle Cell trait? (Pt. states she get Iron infusions for Sickle Cell Disease, last in July) presenting with abdominal pain that started at 3pm the day of ED arrival. abd pain cap uti sickle cell trait plan will change abx to cefriaxone rest as per the team
[2020-02-10] MEDS ORDERED: DEXTROSE 5%-WATER - 50 ML IVPB ONE (13:01)
[2020-02-10] MEDS ORDERED: cefTRIAXone SODIUM 1 GM VIAL ONE (13:01)
[2020-02-10] MEDS: CEFTRIAXONE 1 GM in DEXTROSE 5%-WATER - 50 ML IVPB SCH (13:34)
[2020-02-10] MEDS ORDERED: POTASSIUM CHLORIDE ORAL LIQUID 20 MEQ/15 ML PO ONE (14:15)
[2020-02-10] MEDS: DOCUSATE SODIUM 100 MG CAPSULE (FP) PO SCH (14:20)
--- NOTE | 2020-02-10 14:26 | PN ---
Physical Exam: SUBJECTIVE: Patient seen and examined. Expressed that she feels better. Denied any abdominal pain today. Admitted to increased urinary frequency, but denied burning on urination. Stated that last BM was 3 days ago. OBJECTIVE: Vital Signs Period Temp Pulse Resp BP Sys/Nichols Pulse Ox Last 24 Hr 98.9 F-100.2 F 82-96 17-18 120-137/77-92 96-100 GENERAL: Awake ,alert, not in acute distress HEENT: NCAT, EOMI, moist mucus membranes. CARDIAC: Regular rate and rhythm, no murmur. RESPIRATORY: CTA b/l ABDOMEN: Soft, nontender to palpation, not distended. Normoactive bowel sounds. EXTREMITIES: Warm, well-perfused, no edema SKIN: Warm, dry. CBC, BMP 02/08/20 08:38 02/10/20 06:00 Active Medications Acetaminophen (Tylenol -) 650 mg PO Q6H PRN PRN Reason: FEVER Last Admin: 02/10/20 01:26 Dose: 650 mg Documented by: Aripiprazole (Abilify) 10 mg PO DAILY [facility] Last Admin: 02/10/20 10:40 Dose: 10 mg Documented by: Docusate Sodium (Colace -) 100 mg PO DAILY [facility] Last Admin: 02/10/20 14:20 Dose: 100 mg Documented by: Enoxaparin Sodium (Lovenox -) 40 mg SQ DAILY [facility] Last Admin: 02/10/20 10:39 Dose: 40 mg Documented by: Fluoxetine HCl (Prozac -) 20 mg PO DAILY [facility] Last Admin: 02/10/20 10:38 Dose: 20 mg Documented by: Ceftriaxone Sodium 1 gm/ (Dextrose) 50 mls @ 200 mls/hr IVPB DAILY [facility]; Protocol Last Admin: 02/10/20 13:34 Dose: 200 mls/hr Documented by: Potassium Chloride (K-Dur -) 20 meq PO BID [facility] Stop: 02/11/20 22:01 ASSESSMENT/PLAN: Pt is a 39 yo F (Urdu-speaking) w/ PMH of Depression, bipolar disorder, HTN, nephrolithiasis, Sickle Cell trait who presented to ED w/ abd pain and fever. Currently admitted for sepsis secondary to UTI Sepsis, secondary to UTI, improved - d/c cefepime (started 02/07-02/09) received total 3 days. - will start ceftriaxone (02/09), today is day 1 - c/w acetaminophen for pain/fever - Ucx positive for Ecoli Infrequent BM - c/w colace Hypokalemia - replete potassium - f/u bmp tomorrow Sickle cell trait -not in sickle cell crisis -Pt noted to have micorcytic anemia -f/u reticulocyte count, haptoglobin Depression, bipolar disorder - resumed home dose fluoxetine and abilify Hypokalemia -repleted, f/u BMP tomorrow FEN - No standing fluids - monitor electrolytes and replete as needed - Regular diet Ppx -DVT: lovenox Dispo: continue to monitor in med/surg Visit type - Emergency Visit Emergency Visit: Yes ED Registration Date: 02/08/20 Care time: The patient presented to the Emergency Department on the above date and was hospitalized for further evaluation of their emergent condition. - New Patient This patient is new to me today: No - Critical Care Critical Care patient: No ATTENDING PHYSICIAN STATEMENT I saw and evaluated the patient. I reviewed the resident's note and discussed the case with the resident. I agree with the resident's findings and plan as documented. SUBJECTIVE: OBJECTIVE: ASSESSMENT AND PLAN:
--- NOTE | 2020-02-10 18:35 | PN ---
Teaching Attending Note Name of Resident: Emelia Isaacs ATTENDING PHYSICIAN STATEMENT I saw and evaluated the patient. I reviewed the resident's note and discussed the case with the resident. I agree with the resident's findings and plan as documented. SUBJECTIVE: Patient is comfortable, no fever or chills, no sob. OBJECTIVE: Vital Signs Temperature 99.0 F 02/10/20 14:38 Pulse Rate 80 02/10/20 14:38 Respiratory Rate 18 02/10/20 14:38 Blood Pressure 128/85 02/10/20 14:38 O2 Sat by Pulse Oximetry (%) 100 02/10/20 09:05 PE: per resident's note CBCD WBC 8.6 K/mm3 (4.0-10.0) 02/08/20 08:38 RBC 3.97 M/mm3 (3.60-5.2) 02/08/20 08:38 Hgb 8.4 GM/dL (10.7-15.3) L 02/08/20 08:38 Hct 26.7 % (32.4-45.2) L 02/08/20 08:38 MCV 67.3 fl (80-96) L 02/08/20 08:38 MCHC 31.3 g/dl (32.0-36.0) L 02/08/20 08:38 RDW 19.8 % (11.6-15.6) H 02/08/20 08:38 Plt Count 102 K/MM3 (134-434) L 02/08/20 08:38 MPV 9.4 fl (7.5-11.1) 02/08/20 08:38 CMP Sodium 137 mmol/L (136-145) 02/10/20 06:00 Potassium 3.4 mmol/L (3.5-5.1) L 02/10/20 06:00 Chloride 106 mmol/L (98-107) 02/10/20 06:00 Carbon Dioxide 25 mmol/L (21-32) 02/10/20 06:00 Anion Gap 7 MMOL/L (8-16) L 02/10/20 06:00 BUN 5.7 mg/dL (7-18) L 02/10/20 06:00 Creatinine 0.6 mg/dL (0.55-1.3) 02/10/20 06:00 Random Glucose 82 mg/dL (74-106) 02/10/20 06:00 Calcium 8.4 mg/dL (8.5-10.1) L 02/10/20 06:00 Total Bilirubin 0.7 mg/dL (0.2-1) 02/08/20 08:38 AST 9 U/L (15-37) L 02/08/20 08:38 ALT 16 U/L (13-61) 02/08/20 08:38 Alkaline Phosphatase 124 U/L (45-117) H 02/08/20 08:38 Total Protein 6.7 g/dl (6.4-8.2) 02/08/20 08:38 Albumin 3.0 g/dl (3.4-5.0) L 02/08/20 08:38 CARDIAC ENZYMES Troponin I < 0.02 ng/ml (0.00-0.05) 02/08/20 00:37 Current Medications Generic Name Dose Route Start Last Admin Trade Name Freq PRN Reason Stop Dose Admin Acetaminophen 650 mg 02/08/20 08:29 02/10/20 01:26 Tylenol - PO 650 mg Q6H PRN Administration FEVER Aripiprazole 10 mg 02/08/20 10:00 02/10/20 10:40 Abilify PO 10 mg DAILY [facility] Administration Docusate Sodium 100 mg 02/10/20 14:15 02/10/20 14:20 Colace - PO 100 mg DAILY [facility] Administration Enoxaparin Sodium 40 mg 02/08/20 10:00 02/10/20 10:39 Lovenox - SQ 40 mg DAILY [facility] Administration Fluoxetine HCl 20 mg 02/09/20 14:45 02/10/20 10:38 Prozac - PO 20 mg DAILY [facility] Administration Ceftriaxone Sodium 1 gm/ 50 mls @ 200 mls/hr 02/10/20 12:30 02/10/20 13:34 Dextrose IVPB 200 mls/hr DAILY [facility] Administration Protocol Potassium Chloride 20 meq 02/10/20 22:00 K-Dur - PO 02/11/20 22:01 BID [facility] Home Medications Medication Instructions Recorded Aripiprazole [Abilify] 5 mg PO DAILY 03/24/19 Fluoxetine HCl [Prozac -] 20 mg PO DAILY 03/24/19 traZODone HCL [Trazodone HCl] 50 mg PO HS 03/24/19 Microbiology 02/08/20 00:40 Urine - Urine Clean Catch Urine Culture - Final Escherichia Coli 02/08/20 00:37 Blood - Peripheral Venous Blood Culture - Preliminary NO GROWTH OBTAINED AFTER 48 HOURS, INCUBATION TO CONTINUE FOR 3 DAYS. 02/08/20 00:37 Blood - Peripheral Venous Blood Culture - Preliminary NO GROWTH OBTAINED AFTER 48 HOURS, INCUBATION TO CONTINUE FOR 3 DAYS. ASSESSMENT AND PLAN: This patient is a 39yof with Pmhx of nephrolithiasis, paranoia, sickle cell trait , depression ,who presented with abd pain and fever and was found to have sepsis due to having UTI and was started Iv ceftriaxone. #Sepsis, due to UTI, s/p cefepime, on IV rocephin waiting for final sensitivity ,final cx as above # Hx of sickle cell trait: confirmed with her she has trait not disease . # H/x of depression and bipolar: cont home fluoxetine 40 mg daily and abilify 10 mg daily . # Hypokalemia : replete, level is 3.4 will dc the patient, in am once sensitivity is back and will discuss with ID , Dr Ambrocio .
[2020-02-10] MEDS: POTASSIUM CHLORIDE TABS 20 MEQ TABLET.ER (FP) PO SCH (21:11)
[2020-02-11 08:31] LABS: HEMATOCRIT 24.8 % (32.4-45.2); HEMOGLOBIN 7.9 GM/dL (10.7-15.3); MCH 21.1 pg (25.7-33.7); MEAN CELL VOLUME 65.9 fl (80-96); MEAN PLT VOLUME 9.5 fl (7.5-11.1); PLATELET COUNT 120 K/MM3 (134-434); RBC 3.76 M/mm3 (3.60-5.2); RDW 19.8 % (11.6-15.6); WHITE BLOOD COUNT 4.1 K/mm3 (4.0-10.0)
[2020-02-11 08:50] LABS: BLOOD UREA NITROGEN 7.3 mg/dL (7-18); CALCIUM 8.6 mg/dL (8.5-10.1); CREATININE 0.6 mg/dL (0.55-1.3)
[2020-02-11] MEDS: KCL 10 MEQ IVPB 10 MEQ/100 ML INFUS.BAG IVPB SCH (08:56)
[2020-02-11] MEDS ORDERED: ARIPiprazole 5 MG TABLET ONE (09:10)
[2020-02-11] MEDS ORDERED: cefTRIAXone SODIUM 1 GM VIAL ONE (09:11)
[2020-02-11] MEDS ORDERED: DEXTROSE 5%-WATER - 50 ML IVPB ONE (09:11)
[2020-02-11] MEDS: CEFTRIAXONE 1 GM in DEXTROSE 5%-WATER - 50 ML IVPB SCH (09:25)
[2020-02-11] MEDS: ENOXAPARIN NA (PORCINE) 40 MG/0.4 ML DISP.SYRIN SQ SCH (09:25)
[2020-02-11] MEDS: FLUoxetine HCL 20 MG CAPSULE PO SCH (09:26)
[2020-02-11] MEDS: DOCUSATE SODIUM 100 MG CAPSULE (FP) PO SCH (09:26)
[2020-02-11] MEDS: POTASSIUM CHLORIDE TABS 20 MEQ TABLET.ER (FP) PO SCH (09:26)
[2020-02-11] MEDS: ARIPiprazole 10 MG TABLET PO SCH (09:26)
--- NOTE | 2020-02-11 10:55 | PN ---
Progress Note, Physician History of Present Illness: pulmonary no distress,-sob,-cp - Current Medication List Current Medications: Active Medications Acetaminophen (Tylenol -) 650 mg PO Q6H PRN PRN Reason: FEVER Last Admin: 02/10/20 01:26 Dose: 650 mg Documented by: Aripiprazole (Abilify) 10 mg PO DAILY [facility] Last Admin: 02/11/20 09:26 Dose: 10 mg Documented by: Docusate Sodium (Colace -) 100 mg PO DAILY [facility] Last Admin: 02/11/20 09:26 Dose: 100 mg Documented by: Enoxaparin Sodium (Lovenox -) 40 mg SQ DAILY [facility] Last Admin: 02/11/20 09:25 Dose: 40 mg Documented by: Fluoxetine HCl (Prozac -) 20 mg PO DAILY [facility] Last Admin: 02/11/20 09:26 Dose: 20 mg Documented by: Ceftriaxone Sodium 1 gm/ (Dextrose) 50 mls @ 200 mls/hr IVPB DAILY [facility]; Protocol Last Admin: 02/11/20 09:25 Dose: 200 mls/hr Documented by: Potassium Chloride (K-Dur -) 20 meq PO BID [facility] Stop: 02/11/20 22:01 Last Admin: 02/11/20 09:26 Dose: 20 meq Documented by: - Objective Vital Signs: Vital Signs Temperature 98.6 F 02/11/20 10:05 Pulse Rate 76 02/11/20 10:05 Respiratory Rate 18 02/11/20 10:05 Blood Pressure 127/78 02/11/20 10:05 O2 Sat by Pulse Oximetry (%) 99 02/11/20 10:05 Constitutional: Yes: Well Nourished, Calm Eyes: Yes: WNL HENT: Yes: WNL Neck: Yes: WNL Cardiovascular: Yes: Regular Rate and Rhythm, S1, S2 Respiratory: Yes: CTA Bilaterally Gastrointestinal: Yes: Normal Bowel Sounds, Soft Extremities: Yes: WNL Edema: No Labs: CBC, BMP 02/11/20 06:55 02/11/20 06:55 INR, PTT INR 1.34 (0.83-1.09) H 02/08/20 08:38 Assessment/Plan A/P UTI Nephrolithiasis Atelectasis Anemia/Thrombocytopenia HTN Depression - monitor CBC on antibiotics - pt without respiratory complaints and imaging more suggestive of atelectasis, do not suspect pneumonia at this time - continue antibiotics as per ID - O2 as needed - incentive spirometry - DVT prophylaxis DR MARTINEZ
--- NOTE | 2020-02-11 10:56 | PN ---
Progress Note, Physician History of Present Illness: stable no new issues - Current Medication List Current Medications: Active Medications Acetaminophen (Tylenol -) 650 mg PO Q6H PRN PRN Reason: FEVER Last Admin: 02/10/20 01:26 Dose: 650 mg Documented by: Aripiprazole (Abilify) 10 mg PO DAILY [facility] Last Admin: 02/11/20 09:26 Dose: 10 mg Documented by: Docusate Sodium (Colace -) 100 mg PO DAILY [facility] Last Admin: 02/11/20 09:26 Dose: 100 mg Documented by: Enoxaparin Sodium (Lovenox -) 40 mg SQ DAILY [facility] Last Admin: 02/11/20 09:25 Dose: 40 mg Documented by: Fluoxetine HCl (Prozac -) 20 mg PO DAILY [facility] Last Admin: 02/11/20 09:26 Dose: 20 mg Documented by: Ceftriaxone Sodium 1 gm/ (Dextrose) 50 mls @ 200 mls/hr IVPB DAILY [facility]; Protocol Last Admin: 02/11/20 09:25 Dose: 200 mls/hr Documented by: Potassium Chloride (K-Dur -) 20 meq PO BID [facility] Stop: 02/11/20 22:01 Last Admin: 02/11/20 09:26 Dose: 20 meq Documented by: - Objective Vital Signs: Vital Signs Temperature 98.6 F 02/11/20 10:05 Pulse Rate 76 02/11/20 10:05 Respiratory Rate 18 02/11/20 10:05 Blood Pressure 127/78 02/11/20 10:05 O2 Sat by Pulse Oximetry (%) 99 02/11/20 10:05 Constitutional: Yes: No Distress, Calm Cardiovascular: Yes: Regular Rate and Rhythm Respiratory: Yes: Regular, CTA Bilaterally Gastrointestinal: Yes: Normal Bowel Sounds, Soft Musculoskeletal: Yes: WNL Extremities: Yes: WNL Neurological: Yes: Alert, Oriented Psychiatric: Yes: Alert, Oriented Labs: CBC, BMP 02/11/20 06:55 02/11/20 06:55 INR, PTT INR 1.34 (0.83-1.09) H 02/08/20 08:38 Assessment/Plan 39 y.o [place] Citizen-speaking F w/ PMHx. of Depression, HTN, Hx. of Renal stones (though Pt. denies), Sickle Cell trait? (Pt. states she get Iron infusions for Sickle Cell Disease, last in July) presenting with abdominal pain that started at 3pm the day of ED arrival. abd pain cap uti sickle cell trait plan conitue abx can change to oral when ready to go home
[2020-02-11] MEDS ORDERED: POTASSIUM CHLORIDE TABS 10 MEQ TABLET.ER (FP) PO ONE (13:10)
[2020-02-11 13:28] VITALS: BP 114/72; PULSE 77; TEMP 98.4
--- NOTE | 2020-02-11 13:48 | PN ---
Teaching Attending Note Name of Resident: Emelia Isaacs ATTENDING PHYSICIAN STATEMENT I saw and evaluated the patient. I reviewed the resident's note and discussed the case with the resident. I agree with the resident's findings and plan as documented. SUBJECTIVE: Patient is feeling better with NAD. OBJECTIVE: Vital Signs Temperature 98.4 F 02/11/20 13:26 Pulse Rate 77 02/11/20 13:26 Respiratory Rate 18 02/11/20 13:26 Blood Pressure 114/72 02/11/20 13:26 O2 Sat by Pulse Oximetry (%) 99 02/11/20 10:05 PE: per resident's note CBCD WBC 4.1 K/mm3 (4.0-10.0) 02/11/20 06:55 RBC 3.76 M/mm3 (3.60-5.2) 02/11/20 06:55 Hgb 7.9 GM/dL (10.7-15.3) L 02/11/20 06:55 Hct 24.8 % (32.4-45.2) L 02/11/20 06:55 MCV 65.9 fl (80-96) L 02/11/20 06:55 MCHC 32.0 g/dl (32.0-36.0) 02/11/20 06:55 RDW 19.8 % (11.6-15.6) H 02/11/20 06:55 Plt Count 120 K/MM3 (134-434) L 02/11/20 06:55 MPV 9.5 fl (7.5-11.1) 02/11/20 06:55 CMP Sodium 140 mmol/L (136-145) 02/11/20 06:55 Potassium 4.0 mmol/L (3.5-5.1) 02/11/20 06:55 Chloride 107 mmol/L (98-107) 02/11/20 06:55 Carbon Dioxide 27 mmol/L (21-32) 02/11/20 06:55 Anion Gap 6 MMOL/L (8-16) L 02/11/20 06:55 BUN 7.3 mg/dL (7-18) 02/11/20 06:55 Creatinine 0.6 mg/dL (0.55-1.3) 02/11/20 06:55 Random Glucose 81 mg/dL (74-106) 02/11/20 06:55 Calcium 8.6 mg/dL (8.5-10.1) 02/11/20 06:55 Total Bilirubin 0.7 mg/dL (0.2-1) 02/08/20 08:38 AST 9 U/L (15-37) L 02/08/20 08:38 ALT 16 U/L (13-61) 02/08/20 08:38 Alkaline Phosphatase 124 U/L (45-117) H 02/08/20 08:38 Total Protein 6.7 g/dl (6.4-8.2) 02/08/20 08:38 Albumin 3.0 g/dl (3.4-5.0) L 02/08/20 08:38 CARDIAC ENZYMES Troponin I < 0.02 ng/ml (0.00-0.05) 02/08/20 00:37 Current Medications Generic Name Dose Route Start Last Admin Trade Name Freq PRN Reason Stop Dose Admin Acetaminophen 650 mg 02/08/20 08:29 02/10/20 01:26 Tylenol - PO 650 mg Q6H PRN Administration FEVER Aripiprazole 10 mg 02/08/20 10:00 02/11/20 09:26 Abilify PO 10 mg DAILY [facility] Administration Docusate Sodium 100 mg 02/10/20 14:15 02/11/20 09:26 Colace - PO 100 mg DAILY [facility] Administration Enoxaparin Sodium 40 mg 02/08/20 10:00 02/11/20 09:25 Lovenox - SQ 40 mg DAILY [facility] Administration Fluoxetine HCl 20 mg 02/09/20 14:45 02/11/20 09:26 Prozac - PO 20 mg DAILY [facility] Administration Ceftriaxone Sodium 1 gm/ 50 mls @ 200 mls/hr 02/10/20 12:30 02/11/20 09:25 Dextrose IVPB 200 mls/hr DAILY [facility] Administration Protocol Potassium Chloride 20 meq 02/10/20 22:00 02/11/20 09:26 K-Dur - PO 02/11/20 22:01 20 meq BID [facility] Administration Home Medications Medication Instructions Recorded Aripiprazole [Abilify] 5 mg PO DAILY 03/24/19 Fluoxetine HCl [Prozac -] 20 mg PO DAILY 03/24/19 traZODone HCL [Trazodone HCl] 50 mg PO HS 03/24/19 Cefuroxime Axetil [Ceftin -] 500 mg PO Q12H #6 tablet 02/11/20 Microbiology 02/08/20 00:37 Blood - Peripheral Venous Blood Culture - Preliminary NO GROWTH OBTAINED AFTER 72 HOURS, INCUBATION TO CONTINUE FOR 2 DAYS. 02/08/20 00:37 Blood - Peripheral Venous Blood Culture - Preliminary NO GROWTH OBTAINED AFTER 72 HOURS, INCUBATION TO CONTINUE FOR 2 DAYS. 02/08/20 00:40 Urine - Urine Clean Catch Urine Culture - Final Escherichia Coli ASSESSMENT AND PLAN: This patient is a 39yof with Pmhx of nephrolithiasis, paranoia, sickle cell tra it , depression ,who presented with abd pain and fever and was found to have sepsis due to having UTI and was started Iv ceftriaxone. #Sepsis, due to UTI, s/p cefepime, on IV rocephin will dc patient home on ceftin 500mg po bid x 3 more days final cx as above # Hx of sickle cell trait: confirmed with her she has trait not disease . # H/x of depression and bipolar: cont home fluoxetine 40 mg daily and abilify 10 mg daily . # Hypokalemia : repleted, level is 4.0 now will dc the patient, follow up with primary as an outpatient.
--- NOTE | 2020-02-11 14:00 | DS ---
Physical Exam: SUBJECTIVE: Patient seen and examined. Pt denied abdominal pain, urinary frequency or urgency. She stated she feels well and was eager to go home. OBJECTIVE: Vital Signs Period Temp Pulse Resp BP Sys/Nichols Pulse Ox Last 24 Hr 98.4 F-99.0 F 70-89 18-18 114-128/61-93 97-99 PHYSICAL EXAM GENERAL: Awake ,alert, not in acute distress HEENT: NCAT, EOMI, moist mucus membranes. CARDIAC: Regular rate and rhythm, no murmur. RESPIRATORY: CTA b/l ABDOMEN: Obese. Soft, nontender to palpation, not distended. Normoactive bowel sounds. EXTREMITIES: Warm, well-perfused, no edema SKIN: Warm, dry. LABS CBC, BMP 02/11/20 06:55 02/11/20 06:55 HOSPITAL COURSE: Pt is a 39 yo F ([place]speaking) w/ PMH of Depression, bipolar disorder, HTN, nephrolithiasis, Sickle Cell trait who presented to ED w/ abd pain and fever. Currently admitted for sepsis secondary to UTI. Ucx was positive for E Coli. Pt received IV ceftriaxone and was switched to PO ceftin. Pt had infrequent bowel movements and was given stool softeners and enema to alleviate this. Pt's sy mptoms resolved. Pt is hemodynamically stable and medically optimized to discharge home with oral antibiotics. Date of Admission:02/08/20 Date of Discharge: 02/11/20 Minutes to complete discharge: 36 Discharge Summary Problems reviewed: Yes Reason For Visit: FEVER Current Active Problems Abdominal pain (Acute) Nausea (Acute) Pneumonia (Acute) UTI (urinary tract infection) (Acute) Condition: Improved - Instructions Diet, Activity, Other Instructions: Your visit: You were admitted to the hospital for abdominal pain and fever. We did imaging of your abdomen and pelvis. We also tested your urine. You were found to have a urinary tract infection. You were treated with antibiotics with improvement of your symptoms. Additional image findings: There was a 1mm non-obstructing stone in your right kidney. There is mild enlargement of your spleen. There is a small hernia in your abdomen. There was also finding some fluid found in your lungs. You will follow up with your Primary Care Doctor with these findings. Medications changes: -Please continue to take Ceftin 500mg for 3 days. - Please continue to take Miralax 17gm daily. -Continue to take all other home medications as prescribed. Follow up: - Please follow-up with Dr. Schreiber, your Primary Care Provider, in 2 weeks to review the additional image findings. - Please follow up with your chief operator lock tender, Dr. Ledesma, in 1 week. - Please follow up with your infectious disease doctor, Dr. Ambrocio, in 1 week. Additional Instructions: -You are being discharged to your home. -Please return to the Emergency Department if you experience worsening pain, fe vers, chills, shortness of breath, or chest pain, or if you experience any worsening, new or concerning symptoms. Referrals: Mimi Ambrocio MD [Staff Physician] - 1 Week Jose J Ledesma MD [Staff Physician] - 1 Week Tomasa Schreiber [Primary Care Provider] - 2 Weeks Disposition: HOME - Home Medications Comprehensive Discharge Medication List: Ambulatory Orders Aripiprazole [Abilify] 5 mg PO DAILY 03/24/19 Fluoxetine HCl [Prozac -] 20 mg PO DAILY 03/24/19 traZODone HCL [Trazodone HCl] 50 mg PO HS 03/24/19 Cefuroxime Axetil [Ceftin -] 500 mg PO Q12H #6 tablet 02/11/20 This patient is new to me today: No Emergency Visit: Yes ED Registration Date: 02/08/20 Care time: The patient presented to the Emergency Department on the above date and was hospitalized for further evaluation of their emergent condition. Critical Care patient: No - Discharge Referral Referred to [facility] No ATTENDING PHYSICIAN STATEMENT I saw and evaluated the patient. I reviewed the resident's note and discussed the case with the resident. I agree with the resident's findings and plan as documented. SUBJECTIVE: OBJECTIVE: ASSESSMENT AND PLAN:
[2020-02-11] MEDS ORDERED: POLYETHYLENE GLYCOL 3350 119 GM BTL PO ONE (15:20)
[2020-02-11] MEDS ORDERED: SODIUM PHOSPHATE/NA BIPHOS 133 ML ENEMA RC ONE (15:20)
== END 2020-02-11 16:27 | disposition home or self-care (01) | DRG 720 ==
LOC: JER 23:08 → JERBED 02-08 04:01 → J6S 02-08 22:29
PROVIDERS: ADMIT Internal Medicine; ATTEND Internal Medicine
DX: A41.9 Sepsis, unspecified organism (principal); D57.3 Sickle-cell trait; N39.0 Urinary tract infection, site not specified; I51.7 Cardiomegaly; J98.11 Atelectasis; I10 Essential (primary) hypertension; I34.1 Nonrheumatic mitral (valve) prolapse; E66.9 Obesity, unspecified; Z68.36 Body mass index [BMI] 36.0-36.9, adult; D63.8 Anemia in other chronic diseases classified elsewhere; R10.9 Unspecified abdominal pain; F41.8 Other specified anxiety disorders; N20.0 Calculus of kidney; E87.6 Hypokalemia; E88.09 Other disorders of plasma-protein metabolism, not elsewhere classified; E46 Unspecified protein-calorie malnutrition; D69.6 Thrombocytopenia, unspecified; F22 Delusional disorders; B96.20 Unspecified Escherichia coli [E. coli] as the cause of diseases classified elsewhere; F31.9 Bipolar disorder, unspecified; F17.210 Nicotine dependence, cigarettes, uncomplicated
CPT/HCPCS: 36415; 71045-TC-FY; 74176-TC; 80048; 80053; 81003; 82728; 83010; 83540; 83550; 83605; 83615; 83690; 83735; 84100; 84484; 84703; 85025; 85027; 85045; 85379; 85610; 85730; 87040; 87086; 87186; 93005; 93010; 99285-25; J0131; U0003

== ENCOUNTER 2020-03-31 20:45 | Emergency (ER) | payer OTHER ==
[2020-03-31 21:31] VITALS: TEMP 98.6; BMI 32.3
[2020-03-31 23:20] LABS: BASO % 1.8 % (0-2.0); EOS % 3.2 % (0-4.5); HEMATOCRIT 34.2 % (32.4-45.2); HEMOGLOBIN 10.5 GM/dL (10.7-15.3); LYMPH % 31.5 % (8-40); MCH 22.5 pg (25.7-33.7); MCHC 30.8 g/dl (32.0-36.0); MEAN CELL VOLUME 73.1 fl (80-96); MONO % 5.5 % (3.8-10.2); RBC 4.68 M/mm3 (3.60-5.2); RDW 22.7 % (11.6-15.6); RETICULOCYTES 3.81 % (0.5-1.5); WHITE BLOOD COUNT 5.9 K/mm3 (4.0-10.0)
[2020-03-31 23:28] LABS: INR 1.08 (0.83-1.09); PROTHROMBIN TIME (PATIENT) 13.3 SEC (9.7-13.0)
[2020-03-31 23:44] LABS: CHLORIDE 109 mmol/L (98-107); SODIUM 141 mmol/L (136-145)
[2020-03-31 23:46] LABS: CALCIUM 9.1 mg/dL (8.5-10.1)
[2020-03-31 23:47] LABS: ALBUMIN 3.4 g/dl (3.4-5.0); ANION GAP 7 MMOL/L (8-16); BLOOD UREA NITROGEN 12.4 mg/dL (7-18); CO2 25 mmol/L (21-32); GLUCOSE,RANDOM 111 mg/dL (74-106)
[2020-03-31 23:50] LABS: CREATININE 0.6 mg/dL (0.55-1.3); SGOT/AST 19 U/L (15-37); SGPT/ALT 36 U/L (13-61)
[2020-03-31 23:51] LABS: BILIRUBIN,TOTAL 0.2 mg/dL (0.2-1)
[2020-03-31 23:53] LABS: ALK PHOS 131 U/L (45-117)
[2020-04-01 00:32] LABS: ANISOCYTOSIS 3+; PLATELET COUNT 130 K/MM3 (134-434)
[2020-04-01] MEDS ORDERED: ACETAMINOPHEN 1000 MG/100 ML VIAL (NON FORMULARY) IVPB ONE (00:37)
[2020-04-01] MEDS ORDERED: SODIUM CHLORIDE 1,000 ML IV STA (00:37)
[2020-04-01] MEDS ORDERED: ACETAMINOPHEN INJECTION 100 ML IVPB ONE (00:54)
[2020-04-01 04:01] VITALS: BP 120/67; PULSE 80
== END 2020-04-01 04:01 | disposition home or self-care (01) ==
LOC: JER 20:45
DX: R07.9 Chest pain, unspecified (principal); J40 Bronchitis, not specified as acute or chronic; J06.9 Acute upper respiratory infection, unspecified; D57.00 Hb-SS disease with crisis, unspecified; R91.8 Other nonspecific abnormal finding of lung field
CPT/HCPCS: 36415; 71046-TC-FY; 71275-TC; 80053; 82550; 84484; 85025; 85045; 85610; 86850; 86900; 86901; 87804; 93005; 93010; 99285-25; C9803; J0131; U0003

== ENCOUNTER 2021-05-28 23:48 | Emergency (ER) | payer OTHER ==
[2021-05-28 23:59] VITALS: BMI 32.3
[2021-05-29] MEDS ORDERED: ONDANSETRON 4 MG/2 ML VIAL IVPUSH ONE (02:01)
[2021-05-29] MEDS ORDERED: SODIUM CHLORIDE 0.9% 500 ML INFUS.BAG IV ONE (02:01)
[2021-05-29] MEDS ORDERED: morphine CARPU-JECT 8 MG/1 ML DISP.SYRIN IVPUSH ONE (02:08)
[2021-05-29] MEDS ORDERED: ONDANSETRON 4 MG/2 ML VIAL ONE (02:38)
[2021-05-29 03:30] LABS: INR 1.19 (0.83-1.09); PROTHROMBIN TIME (PATIENT) 13.7 SEC (9.7-13.0)
[2021-05-29 03:39] LABS: BASO % 0.6 % (0-2.0); EOS % 1.3 % (0-4.5); HEMATOCRIT 36.4 % (32.4-45.2); HEMOGLOBIN 12.4 GM/dL (10.7-15.3); LYMPH % 13.3 % (8-40); MCHC 33.9 g/dl (32.0-36.0); MEAN CELL VOLUME 85.3 fl (80-96); MEAN PLT VOLUME 11.6 fl (7.5-11.1); NEUT % 73.8 % (42.8-82.8); PLATELET COUNT 78 10^3/uL (134-434); RBC 4.27 M/mm3 (3.60-5.2); WHITE BLOOD COUNT 4.1 K/mm3 (4.0-10.0)
[2021-05-29 03:40] LABS: CHLORIDE 110 mmol/L (98-107); SODIUM 139 mmol/L (136-145)
[2021-05-29 03:42] LABS: CALCIUM 8.3 mg/dL (8.5-10.1); MAGNESIUM 2.1 mg/dL (1.8-2.4)
[2021-05-29 03:43] LABS: ALBUMIN 3.5 g/dl (3.4-5.0); ANION GAP 6 MMOL/L (8-16); BLOOD UREA NITROGEN 9.1 mg/dL (7-18); CO2 23 mmol/L (21-32); GLUCOSE,RANDOM 91 mg/dL (74-106)
[2021-05-29 03:45] LABS: EPI CELLS 28 /uL (0-25.1); HYALINE CASTS 3 /uL (0-3.1); PH,URINE 5.5 (5.0-8.0); URINE APPEARANCE CLEAR; URINE BACTERIA 305 /uL (0-1359); URINE BILIRUBIN NEGATIVE (NEGATIVE); URINE COLOR YELLOW; URINE GLUCOSE (UA) NEGATIVE (NEGATIVE); URINE KETONE NEGATIVE (NEGATIVE); URINE LEUK ESTERASE NEGATIVE (NEGATIVE); URINE NITRITE NEGATIVE (NEGATIVE); URINE PROTEIN 2+ (NEGATIVE); URINE RBC 65 /uL (0-23.9); URINE UROBILINOGEN 0.2 mg/dL (0.2-1.0); URINE WBC 15 /uL (0-25.8)
[2021-05-29 03:46] LABS: CREATININE 0.7 mg/dL (0.55-1.3); PHOSPHOROUS 2.6 mg/dL (2.5-4.9); SGOT/AST 36 U/L (15-37); SGPT/ALT 53 U/L (13-61)
[2021-05-29 03:48] LABS: BILIRUBIN,TOTAL 0.3 mg/dL (0.2-1); TOT PROT 7.3 g/dl (6.4-8.2)
[2021-05-29 03:49] LABS: ALK PHOS 145 U/L (45-117)
[2021-05-29 04:08] VITALS: BP 118/73; PULSE 94; TEMP 99.6
== END 2021-05-29 06:01 | disposition home or self-care (01) ==
LOC: JER 23:48
PROC: 3E033NZ Introduction of Analgesics, Hypnotics, Sedatives into Peripheral Vein, Percutaneous Approach (ICD-10-PCS; principal; 2021-05-28)
PROC: 3E033GC Introduction of Other Therapeutic Substance into Peripheral Vein, Percutaneous Approach (ICD-10-PCS; 2021-05-28)
DX: R51.9 Headache, unspecified (principal); M79.10 Myalgia, unspecified site; R11.0 Nausea
CPT/HCPCS: 36415; 71045-TC-FY; 80053; 81003; 82550; 83735; 84100; 84484; 85025; 85610; 86850; 86900; 86901; 99285-25

== ENCOUNTER 2021-11-19 02:17 | Emergency (ER) | payer OTHER ==
[2021-11-19 03:05] VITALS: BP 116/83; PULSE 89; TEMP 98.7; BMI 35.3
== END 2021-11-19 05:18 | disposition left against medical advice (07) ==
LOC: JER 02:17
DX: R51.9 Headache, unspecified (principal); R53.1 Weakness
CPT/HCPCS: 99281-25

== ENCOUNTER 2022-01-15 23:15 | Emergency (ER) | payer OTHER ==
[2022-01-15 23:25] VITALS: BP 166/111; PULSE 85; RESP 20; TEMP 98.6; BMI 33.9
[2022-01-16] MEDS ORDERED: IBUPROFEN 600 MG TABLET (FP) PO ONE ×2 (00:46→00:48)
== END 2022-01-16 00:53 | disposition home or self-care (01) ==
LOC: JER 23:15
DX: K02.9 Dental caries, unspecified (principal)
CPT/HCPCS: 99283-25

== ENCOUNTER 2022-06-28 01:42 | Emergency (ER) | payer OTHER ==
[2022-06-28 02:03] VITALS: RESP 16; TEMP 98.1; BMI 34.9
[2022-06-28] MEDS ORDERED: ACETAMINOPHEN 1000 MG/100 ML BAG IVPB ONE (02:21)
[2022-06-28] MEDS ORDERED: SODIUM CHLORIDE 0.9% 500 ML INFUS.BAG IV ONE (02:21)
[2022-06-28] MEDS ORDERED: ACETAMINOPHEN INJECTION 100 ML IVPB ONE (02:32)
[2022-06-28] MEDS ORDERED: FAMOTIDINE 20 MG/50 ML IVPB 20 MG/50 ML MG IVPB ONE ×2 (02:32→02:41)
[2022-06-28 02:39] LABS: PH,URINE 6.5 (5.0-8.0); URINE APPEARANCE CLEAR; URINE BILIRUBIN NEGATIVE (NEGATIVE); URINE COLOR YELLOW; URINE GLUCOSE (UA) NEGATIVE (NEGATIVE); URINE KETONE NEGATIVE (NEGATIVE); URINE LEUK ESTERASE NEGATIVE (NEGATIVE); URINE NITRITE NEGATIVE (NEGATIVE); URINE PROTEIN NEGATIVE (NEGATIVE); URINE UROBILINOGEN 0.2 mg/dL (0.2-1.0)
[2022-06-28 03:36] LABS: INR 1.21 (0.83-1.09)
[2022-06-28 03:39] LABS: ACTIVATED PTT 30.8 SECONDS (25.2-36.5)
[2022-06-28 03:58] LABS: BASO % 1.2 % (0-2.0); EOS % 3.1 % (0-4.5); HEMATOCRIT 36.6 % (32.4-45.2); HEMOGLOBIN 12.3 GM/dL (10.7-15.3); LYMPH % 37.6 % (8-40); MCH 26.6 pg (25.7-33.7); MCHC 33.6 g/dl (32.0-36.0); MEAN CELL VOLUME 79.3 fl (80-96); MEAN PLT VOLUME 10.6 fl (7.5-11.1); MONO % 4.6 % (3.8-10.2); NEUT % 53.5 % (42.8-82.8); RBC 4.62 M/mm3 (3.60-5.2); RDW 17.7 % (11.6-15.6); WHITE BLOOD COUNT 6.7 K/mm3 (4.0-10.0)
[2022-06-28 04:01] LABS: PLATELET COUNT 117 10^3/uL (134-434)
[2022-06-28 05:07] LABS: CALCIUM 8.2 mg/dL (8.5-10.1)
[2022-06-28 05:08] LABS: ALBUMIN 3.3 g/dl (3.4-5.0); BLOOD UREA NITROGEN 8.3 mg/dL (7-18)
[2022-06-28 05:11] LABS: CREATININE 0.5 mg/dL (0.55-1.3)
[2022-06-28 05:13] LABS: BILIRUBIN,TOTAL 0.2 mg/dL (0.2-1)
[2022-06-28 06:11] VITALS: BP 135/79; PULSE 96
== END 2022-06-28 06:00 | disposition home or self-care (01) ==
LOC: JER 01:42
PROC: 3E0333Z Introduction of Anti-inflammatory into Peripheral Vein, Percutaneous Approach (ICD-10-PCS; principal; 2022-06-28)
PROC: 3E033GC Introduction of Other Therapeutic Substance into Peripheral Vein, Percutaneous Approach (ICD-10-PCS; 2022-06-28)
DX: R11.0 Nausea (principal); R07.89 Other chest pain
CPT/HCPCS: 0241U-QW; 36415; 71045-TC-FY; 80053; 81003; 84484; 85025; 85610; 85730; 86850; 86900; 86901; 87086; 93005; 93010; 99285-25

== ENCOUNTER 2023-01-01 00:33 | Emergency (ER) | payer OTHER ==
[2023-01-01 00:40] VITALS: BMI 34.3
[2023-01-01] MEDS ORDERED: diazePAM CARPU-JECT 10 MG/2 ML DISP.SYRIN IVPUSH ONE (01:31)
[2023-01-01] MEDS ORDERED: LACTATED RINGERS SOLUTION 1000 ML INFUS.BAG IV ONE (01:32)
[2023-01-01] MEDS ORDERED: LORazepam 2 MG/ML SDV VIAL IVPUSH ONE ×2 (01:38→09:48)
[2023-01-01 01:57] LABS: BASO % 1.1 % (0-2.0); EOS % 0.8 % (0-4.5); HEMATOCRIT 45.1 % (32.4-45.2); HEMOGLOBIN 15.1 GM/dL (10.7-15.3); LYMPH % 32.5 % (8-40); MCH 29.5 pg (25.7-33.7); MCHC 33.5 g/dl (32.0-36.0); MEAN CELL VOLUME 87.9 fl (80-96); MEAN PLT VOLUME 11.2 fl (7.5-11.1); MONO % 3.9 % (3.8-10.2); NEUT % 61.7 % (42.8-82.8); RBC 5.14 M/mm3 (3.60-5.2); RDW 14.2 % (11.6-15.6); WHITE BLOOD COUNT 6.9 K/mm3 (4.0-10.0)
[2023-01-01 02:16] LABS: POTASSIUM 4.2 mmol/L (3.5-5.1)
[2023-01-01 02:19] LABS: ALBUMIN 4.2 g/dl (3.4-5.0); BLOOD UREA NITROGEN 9.5 mg/dL (7-18)
[2023-01-01 02:22] LABS: CREATININE 0.9 mg/dL (0.55-1.3)
[2023-01-01 02:24] LABS: TOT PROT 8.4 g/dl (6.4-8.2)
[2023-01-01 02:37] LABS: URINE APPEARANCE CLEAR; URINE BILIRUBIN NEGATIVE (NEGATIVE); URINE COLOR YELLOW; URINE GLUCOSE (UA) NEGATIVE (NEGATIVE); URINE KETONE NEGATIVE (NEGATIVE); URINE LEUK ESTERASE NEGATIVE (NEGATIVE); URINE NITRITE NEGATIVE (NEGATIVE); URINE PROTEIN NEGATIVE (NEGATIVE); URINE UROBILINOGEN 0.2 mg/dL (0.2-1.0)
[2023-01-01 02:52] LABS: PLATELET COUNT 153 10^3/uL (134-434)
[2023-01-01 02:54] LABS: METHADONE, UR NEGATIVE (NEGATIVE); URINE AMPHETAMINES NEGATIVE (NEGATIVE); URINE BENZODIAZEPINES NEGATIVE (NEGATIVE)
[2023-01-01 02:55] LABS: COCAINE, UR NEGATIVE (NEGATIVE); OPIATES, URI NEGATIVE (NEGATIVE); PHENCYCLIDINE,URINE NEGATIVE (NEGATIVE); URINE BARBITURATES NEGATIVE (NEGATIVE)
[2023-01-01 03:02] LABS: PLATELET ESTIMATE ADEQUATE
[2023-01-01 03:15] LABS: BILIRUBIN,TOTAL 0.5 mg/dL (0.2-1)
[2023-01-01] MEDS ORDERED: ACETAMINOPHEN 500 MG TABLET (FP) PO ONE (08:58)
[2023-01-01] MEDS ORDERED: ACETAMINOPHEN 325 MG TABLET (FP) ONE (09:19)
[2023-01-01 09:36] VITALS: RESP 18
[2023-01-01 12:39] VITALS: BP 126/94; PULSE 81; TEMP 97.8
== END 2023-01-01 12:40 | disposition admitted as inpatient to this hospital (09) ==
LOC: JER 00:33
PROC: 3E033NZ Introduction of Analgesics, Hypnotics, Sedatives into Peripheral Vein, Percutaneous Approach (ICD-10-PCS; principal; 2023-01-01)
PROC: 3E033GC Introduction of Other Therapeutic Substance into Peripheral Vein, Percutaneous Approach (ICD-10-PCS; 2023-01-01)
PROC: 3E033NZ Introduction of Analgesics, Hypnotics, Sedatives into Peripheral Vein, Percutaneous Approach (ICD-10-PCS; 2023-01-01)
DX: F41.8 Other specified anxiety disorders (principal); R45.851 Suicidal ideations; F10.920 Alcohol use, unspecified with intoxication, uncomplicated
CPT/HCPCS: 36415; 71045-TC-FY; 80053; 80307; 81003; 84439; 84443; 84484; 84703; 85025; 87086; 93005; 93010; 99285-25

== ENCOUNTER 2023-05-22 11:05 | Emergency (ER) | payer OTHER ==
[2023-05-22 11:58] VITALS: BMI 36.6
[2023-05-22] MEDS ORDERED: ACETAMINOPHEN 1000 MG/100 ML BAG IVPB ONE (12:16)
[2023-05-22] MEDS ORDERED: ACETAMINOPHEN INJECTION 100 ML IVPB ONE (12:52)
[2023-05-22 12:55] LABS: VENOUS BASE EXCESS -0.3 mmol/L (-2-2); VENOUS O2 SATURATION 83.1 % (70-80); VENOUS PCO2 40.1 mmHg (38-52); VENOUS PH 7.401 (7.310-7.410)
[2023-05-22 12:56] LABS: BASO % 0.7 % (0-2.0); EOS % 1.1 % (0-4.5); HEMATOCRIT 42.9 % (32.4-45.2); HEMOGLOBIN 14.2 GM/dL (10.7-15.3); LYMPH % 27.8 % (8-40); MCH 29.8 pg (25.7-33.7); MEAN CELL VOLUME 90.4 fl (80-96); MEAN PLT VOLUME 11.2 fl (7.5-11.1); MONO % 12.3 % (3.8-10.2); NEUT % 58.1 % (42.8-82.8); PLATELET COUNT 105 10^3/uL (134-434); RBC 4.75 M/mm3 (3.60-5.2); RDW 14.1 % (11.6-15.6); WHITE BLOOD COUNT 4.1 K/mm3 (4.0-10.0)
[2023-05-22] MEDS ORDERED: SODIUM CHLORIDE 0.9% 500 ML INFUS.BAG IV ONE (12:57)
[2023-05-22 13:22] LABS: POTASSIUM 4.1 mmol/L (3.5-5.1)
[2023-05-22] MEDS ORDERED: ONDANSETRON 4 MG/2 ML VIAL IVPUSH ONE (13:22)
[2023-05-22 13:23] LABS: MAGNESIUM 2.2 mg/dL (1.8-2.4)
[2023-05-22 13:27] LABS: ALBUMIN 3.3 g/dl (3.4-5.0); CALCIUM 8.7 mg/dL (8.5-10.1)
[2023-05-22 13:28] LABS: BLOOD UREA NITROGEN 11.2 mg/dL (7-18)
[2023-05-22 13:30] LABS: CREATININE 0.8 mg/dL (0.55-1.3)
[2023-05-22 13:32] LABS: BILIRUBIN,TOTAL 0.3 mg/dL (0.2-1); TOT PROT 7.4 g/dl (6.4-8.2)
[2023-05-22] MEDS ORDERED: ONDANSETRON 4 MG/2 ML VIAL ONE (13:37)
[2023-05-22 15:22] VITALS: BP 133/78; PULSE 78; RESP 19; TEMP 98.6
== END 2023-05-22 14:45 | disposition home or self-care (01) ==
LOC: JER 11:05
PROC: 3E033NZ Introduction of Analgesics, Hypnotics, Sedatives into Peripheral Vein, Percutaneous Approach (ICD-10-PCS; principal; 2023-05-22)
PROC: 3E033GC Introduction of Other Therapeutic Substance into Peripheral Vein, Percutaneous Approach (ICD-10-PCS; 2023-05-22)
DX: D57.00 Hb-SS disease with crisis, unspecified (principal); J06.9 Acute upper respiratory infection, unspecified; R53.1 Weakness; M79.10 Myalgia, unspecified site; R51.9 Headache, unspecified; U07.1 COVID-19
CPT/HCPCS: 0241U-QW; 36415; 70450-TC; 71045-TC-FY; 80053; 82010; 82803; 83690; 83735; 84484; 84703; 85025; 93005; 93010; 99285-25

== ENCOUNTER 2024-03-24 13:17 | Emergency (ER) | payer OTHER ==
[2024-03-24 13:36] VITALS: BP 130/76; PULSE 80; RESP 20; TEMP 98; BMI 32.9
[2024-03-24] MEDS ORDERED: ACETAMINOPHEN INJECTION 100 ML ONE (14:32)
[2024-03-24] MEDS ORDERED: clonazePAM 0.5 MG TABLET ONE (14:32)
[2024-03-24] MEDS: ACETAMINOPHEN 1000 MG/100 ML BAG IVPB ONE (14:56)
[2024-03-24] MEDS: clonazePAM 0.5 MG TABLET PO ONE (14:56)
[2024-03-24 15:09] LABS: BASO % 0.7 % (0-2.0); EOS % 2.4 % (0-4.5); HEMATOCRIT 40.2 % (32.4-45.2); HEMOGLOBIN 13.7 GM/dL (10.7-15.3); LYMPH % 40.1 % (8-40); MCH 30.4 pg (25.7-33.7); MCHC 34.1 g/dl (32.0-36.0); MEAN PLT VOLUME 11.8 fl (7.5-11.1); MONO % 5.1 % (3.8-10.2); NEUT % 51.7 % (42.8-82.8); PLATELET COUNT 122 10^3/uL (134-434); RBC 4.52 M/mm3 (3.60-5.2); RDW 12.9 % (11.6-15.6); WHITE BLOOD COUNT 4.7 K/mm3 (4.0-10.0)
[2024-03-24] MEDS ORDERED: diazePAM 5 MG TABLET ONE (15:13)
[2024-03-24] MEDS: diazePAM 5 MG TABLET PO ONE (15:19)
[2024-03-24 15:40] LABS: CALCIUM 9.4 mg/dL (8.5-10.1)
[2024-03-24 15:41] LABS: ALBUMIN 3.6 g/dl (3.4-5.0); BLOOD UREA NITROGEN 14.7 mg/dL (7-18)
[2024-03-24 15:44] LABS: CREATININE 0.7 mg/dL (0.55-1.3)
[2024-03-24 15:45] LABS: BILIRUBIN,TOTAL 0.4 mg/dL (0.2-1)
[2024-03-24 15:46] LABS: TOT PROT 7.2 g/dl (6.4-8.2)
== END 2024-03-24 18:11 | disposition home or self-care (01) ==
LOC: JER 13:17
PROC: 3E033NZ Introduction of Analgesics, Hypnotics, Sedatives into Peripheral Vein, Percutaneous Approach (ICD-10-PCS; principal; 2024-03-24)
DX: M54.2 Cervicalgia (principal); R51.9 Headache, unspecified; R07.9 Chest pain, unspecified; R00.2 Palpitations
CPT/HCPCS: 36415; 71046-TC-FY; 80053; 84484; 85025; 93005; 93010; 99285-25; J0131

== ENCOUNTER 2025-01-21 01:22 | Emergency (ER) | payer OTHER ==
[2025-01-21 01:38] VITALS: BP 127/97; PULSE 68; RESP 20; TEMP 98.1; BMI 33.7
[2025-01-21] MEDS ORDERED: ACETAMINOPHEN 325 MG TABLET (FP) ONE (01:55)
[2025-01-21] MEDS ORDERED: ONDANSETRON *ODT* 4 MG TABLET ONE (01:55)
[2025-01-21] MEDS ORDERED: KETOROLAC TROMETHAMINE 30 MG/1 ML VIAL ONE (01:55)
[2025-01-21] MEDS ORDERED: LIDOCAINE VISCOUS 2% ORAL/TOP 15 ML UNIT-DOSE CUP ONE (01:59)
[2025-01-21] MEDS: KETOROLAC TROMETHAMINE 30 MG/1 ML VIAL IM ONE (02:04)
[2025-01-21] MEDS: ACETAMINOPHEN 325 MG TABLET (FP) PO ONE (02:05)
[2025-01-21] MEDS: LIDOCAINE VISCOUS 2% ORAL/TOP 15 ML UNIT-DOSE CUP MM ONE (02:05)
[2025-01-21] MEDS: ONDANSETRON *ODT* 4 MG TABLET SL ONE (02:06)
[2025-01-21 02:26] LABS: THROAT:GRP A STREP NOT DETECTED (NOTDETECTED)
== END 2025-01-21 02:52 | disposition home or self-care (01) ==
LOC: JER 01:22
PROC: 3E0233Z Introduction of Anti-inflammatory into Muscle, Percutaneous Approach (ICD-10-PCS; principal; 2025-01-21)
DX: R51.9 Headache, unspecified (principal); R09.81 Nasal congestion; M79.10 Myalgia, unspecified site; J02.9 Acute pharyngitis, unspecified; R11.0 Nausea; R53.81 Other malaise; R68.83 Chills (without fever); B34.9 Viral infection, unspecified
CPT/HCPCS: 71046-TC-FY; 87637-QW; 87651; 99284-25; Q0162